=== PATIENT | female | born 1950 | race Caucasian/White ===

== ENCOUNTER → 2017-08-30 07:38 | Outpatient (CLI) | payer MEDICARE, OTHER, SELFPAY ==
--- NOTE | 2017-08-30 07:42 | CT_ITS ---
STUDY: CT ABDOMEN AND PELVIS WITH CONTRAST REASON FOR EXAM: Female, 67 years old. Left-sided abdominal pain with radiation to the left lower extremity. Possible abdominal mass. History of cervical carcinoma and prior hysterectomy. RADIATION DOSAGE (If Supplied By Facility): CTDIvol = ( 14.18 ) mGy, DLP = ( 993.74 ) mGycm TECHNIQUE: Transaxial images were obtained from the dome of the diaphragm to the symphysis pubis with oral contrast. 100 ml of Isovue 300 contrast was administered. Sagittal and coronal images were reconstructed. Individualized dose optimization techniques were used for this CT. COMPARISON: None. FINDINGS: The visualized lung bases are unremarkable. Coronary artery calcification. Normal liver. Normal gallbladder and extrahepatic biliary system. Normal spleen. Normal pancreas. There is a small, circumscribed, smooth, low attenuation left adrenal mass, consistent with an adrenal adenoma. This measures 1 cm. Normal right adrenal gland. There is a 1.7 cm cyst in the anterior aspect of the right kidney. Normal left kidney. There is a small hiatal hernia. Normal small intestine. There are multiple colonic diverticula consistent with diverticulosis. The appendix is visualized and appears normal. There is scattered atherosclerotic calcification of the abdominal aorta, without a demonstrated aneurysm. Normal inferior vena cava. There is borderline retroperitoneal lymphadenopathy with enlarged nodes no greater than 10mm in the short axis diameter. Normal urinary bladder. There is absence of the uterus consistent with a prior hysterectomy. Phleboliths are seen in the pelvis. There is a small umbilical hernia containing fat. Small benign-appearing bilateral inguinal lymph nodes. There are degenerative changes of the visualized lumbar spine. CT/Abdomen/Pelvis WITH Contrast IMPRESSION: 1 cm adenoma in the left adrenal gland. Sigmoid diverticulosis. Electronically Signed: Leo Novoa MD at 10:13 EST Tel [phone], Service support ,
== END ==
PROVIDERS: Family Provider Family Medicine; PCP Family Medicine; Visit Provider Family Medicine
DX: R19.00 Intra-abdominal and pelvic swelling, mass and lump, unspecified site (principal)
CPT/HCPCS: 74177; Q9967

== ENCOUNTER → 2017-09-14 09:04 | Outpatient (CLI) | payer MEDICARE, OTHER, SELFPAY ==
--- NOTE | 2017-09-14 09:05 | HPBI_ITS ---
MAMMOGRAPHY - BILATERAL SCREENING REASON FOR EXAM: Female, 67 years old. Routine annual screening examination. PERTINENT HISTORY: Aunt with breast cancer. TECHNIQUE: Digital bilateral breast dave (3D mammographic acquisition) in the CC and MLO projections. 2-D mediolateral oblique (MLO) and craniocaudad (CC) views of both breasts were obtained. CAD: Full Field Digital Mammography with Computer Added Detection was performed. COMPARISON: Comparison is made with prior outside examination dated May 18, 2016. FINDINGS: Breast Composition: The breasts are almost entirely fatty. There are no dominant masses or suspicious calcifications. Stable bilateral benign appearing axillary lymph nodes. No other significant abnormalities are identified. There has been no significant change since the prior study. HPBI/SCREENING MAMM (CAD), BILAT IMPRESSION: Stable bilateral screening mammogram. Yearly follow-up mammogram recommended. (A) ASSESSMENT CATEGORY: BIRADS Category 2: Benign. A letter regarding these results will be sent to the patient by the facility within 30 days. Approximately 10% of breast cancers are not detected by mammography. A normal mammogram should not delay biopsy of a clinically suspicious abnormality. [id number] Electronically Signed: Leo Novoa MD at 10:52 EST Tel [phone], Service support ,
--- NOTE | 2017-09-14 09:13 | HPBD_ITS ---
STUDY: DUAL ENERGY X-RAY ABSORPTIOMETRY / DXA REASON FOR EXAM: Female, 67 years old. The patient is postmenopausal. Loss of height. TECHNIQUE: Bone Mineral Density (BMD) measurements of lumbar spine and bilateral hips were obtained. COMPARISON: None. FINDINGS: Lumbar Spine (L1-L4): g/cm2 (1.082) / T-score (-1.0) / Z-score (0.6) Findings are suggestive of normal bone density with a low fracture risk. Left Femur Total: g/cm2 (1.012) / T-score (0.0) / Z-score (1.4) Left Femoral Neck: g/cm2 (0.932) / T-score (-0.8) / Z-score (0.8) Right Femur Total: g/cm2 (0.992) / T-score (-0.1) / Z-score (1.2) Right Femoral Neck: g/cm2 (0.889) / T-score (-1.1) / Z-score (0.5) HPBD/Dexa Bone Density Study (HP) IMPRESSION: The patient is considered osteopenic as outlined below according to World Ketan Organization (WHO) criteria with a low fracture risk. Reference Information: The T-score is the number of standard deviations above or below the standard which is normal for young adults at their peak bone mineral density. The World Health Organization (WHO) interprets the T-scores as follows: Above -1 Normal bone density Between -1 and -2.5 Osteopenia Equal to / or below -2.5 Osteoporosis As a practical clinical guideline, osteopenia may be graded as follows: Mild -1 through -1.5 Moderate -1.6 through -2.0 Severe -2.1 through -2.4 The Z-score is the number of standard deviations above or below age-matched controls. A Z-score of less than -1.5 would be considered abnormal. References: 1. NIH Osteoporosis and Related Bone Diseases http://www.osteo.org 2. International Society for Clinical Densitometry http://www.iscd.org 3. National Osteoporosis Foundation http://www.nof.org Electronically Signed: Leo Novoa MD at 9:42 EST Tel [phone], Service support ,
== END ==
PROVIDERS: Family Provider Family Medicine; PCP Family Medicine; Visit Provider Family Medicine
DX: Z12.31 Encounter for screening mammogram for malignant neoplasm of breast (principal); M81.0 Age-related osteoporosis without current pathological fracture
CPT/HCPCS: 77063; 77067; 77080

== ENCOUNTER → 2018-11-01 07:46 | Outpatient (CLI) | payer MEDICARE, OTHER, SELFPAY ==
--- NOTE | 2018-11-01 07:55 | BI_ITS ---
MAMMOGRAPHY - BILATERAL SCREENING REASON FOR EXAM: Female, 68 years old. Routine annual screening examination. PERTINENT HISTORY: Aunt with breast cancer. TECHNIQUE: Digital bilateral breast dave (3D mammographic acquisition) in the CC and MLO projections. 2-D mediolateral oblique (MLO) and craniocaudad (CC) views of both breasts were obtained. CAD: Full Field Digital Mammography with Computer Added Detection was performed. COMPARISON: Comparison is made with prior study dated September 14, 2017. FINDINGS: Breast Composition: The breasts are almost entirely fatty. There are no dominant masses or suspicious calcifications. Stable small benign-appearing bilateral axillary lymph nodes. No other significant abnormalities are identified. There has been no significant change since the prior study. BI/SCREENING MAMM (CAD), BILAT IMPRESSION: Stable bilateral screening mammogram. Yearly follow-up mammogram recommended. (A) ASSESSMENT CATEGORY: BIRADS Category 2: Benign. A letter regarding these results will be sent to the patient by the facility within 30 days. Approximately 10% of breast cancers are not detected by mammography. A normal mammogram should not delay biopsy of a clinically suspicious abnormality. [id number] Electronically Signed: Leo Novoa, at 9:07 EDT , Service support ,
== END ==
PROVIDERS: Family Provider Family Medicine; PCP Family Medicine; Referring Provider Family Medicine; Visit Provider Family Medicine
DX: Z12.31 Encounter for screening mammogram for malignant neoplasm of breast (principal)
CPT/HCPCS: 77063; 77067

== ENCOUNTER → 2019-08-07 15:16 | Outpatient (CLI) | payer MEDICARE, OTHER, SELFPAY ==
--- NOTE | 2019-08-07 15:28 | RAD_ITS ---
STUDY: X-RAY - LUMBAR SPINE REASON FOR EXAM: Female, 69 years old. ACUTE LBP, RIGHT MOSTLY, S/P BENDING FORWARD. PATIENT STATES FELT A POP ABOUT A WEEK AGO AND PAIN SINCE THEN. TECHNIQUE: 5 view(s) of the lumbar spine were obtained including oblique views. COMPARISON: None FINDINGS: Normal lumbar lordosis. There is no substantial scoliosis. There is a normal alignment of the vertebrae. There is endplate spondylosis of the lumbar vertebrae. There is multi-level degenerative disc disease with multi-level disc space narrowing. Facet joint osteoarthritis. There is atherosclerotic calcification of the abdominal aorta without a demonstrated aneurysm. RAD/L/S Spine Min 4 Views IMPRESSION: Degenerative changes of the spine, as detailed above. Electronically Signed: Leo Novoa, at 8:59 EST , Service support ,
== END ==
PROVIDERS: PCP Family Medicine; Referring Provider Family Medicine; Visit Provider Family Medicine
DX: M54.5 Low back pain (principal)
CPT/HCPCS: 72110

== ENCOUNTER → 2019-12-18 07:23 | Outpatient (CLI) | payer MEDICARE, OTHER, SELFPAY ==
--- NOTE | 2019-12-18 07:28 | BI_ITS ---
MAMMOGRAPHY - BILATERAL SCREENING REASON FOR EXAM: Female, 69 years old. Routine annual screening examination. PERTINENT HISTORY: Aunt with breast cancer. TECHNIQUE: Digital bilateral breast cristobal (3D mammographic acquisition) in the CC and MLO projections. 2-D mediolateral oblique (MLO) and craniocaudad (CC) views of both breasts were obtained. CAD: Full Field Digital Mammography with Computer Added Detection was performed. COMPARISON: Comparison is made with prior study dated November 01, 2018 and April 14, 2018. FINDINGS: Breast Composition: The breasts are almost entirely fatty. There are no dominant masses or suspicious calcifications. Stable small benign appearing bilateral axillary lymph nodes. No other significant abnormalities are identified. There has been no significant change since the prior study. BI/SCREEN MAMM (CAD) W/CRISTOBAL BILAT IMPRESSION: Stable bilateral screening mammogram. Yearly follow-up mammogram recommended. (A) ASSESSMENT CATEGORY: BIRADS Category 2: Benign. A letter regarding these results will be sent to the patient by the facility within 30 days. Approximately 10% of breast cancers are not detected by mammography. A normal mammogram should not delay biopsy of a clinically suspicious abnormality. [id number] Electronically Signed: Leo Novoa, at 9:14 EDT , Service support ,
== END ==
PROVIDERS: PCP Family Medicine; Referring Provider Family Medicine; Visit Provider Family Medicine
DX: Z12.31 Encounter for screening mammogram for malignant neoplasm of breast (principal)
CPT/HCPCS: 77063; 77067

== ENCOUNTER → 2020-12-18 15:07 | Outpatient (CLI) | payer MEDICARE, OTHER, SELFPAY ==
--- NOTE | 2020-12-18 15:10 | BI_ITS ---
MAMMOGRAPHY - BILATERAL SCREENING REASON FOR EXAM: Female, 70 years old. Routine annual screening examination. PERTINENT HISTORY: Aunt with breast cancer. TECHNIQUE: Digital bilateral breast cristobal (3D mammographic acquisition) in the CC and MLO projections. 2-D mediolateral oblique (MLO) and craniocaudad (CC) views of both breasts were obtained. CAD: Full Field Digital Mammography with Computer Added Detection was performed. COMPARISON: Comparison is made with prior examination dated 12/18/2019 and 11/01/2018. FINDINGS: Breast Composition: The breasts are almost entirely fatty. There are no dominant masses or suspicious calcifications. Stable benign appearing bilateral axillary lymph nodes. No other significant abnormalities are identified. There has been no significant change since the prior study. BI/SCRN MAMM (CAD)W/CRISTOBAL BILAT IMPRESSION: Stable bilateral screening mammogram. Yearly follow-up mammogram recommended. (A) ASSESSMENT CATEGORY: BIRADS Category 2: Benign. A letter regarding these results will be sent to the patient by the facility within 30 days. Approximately 10% of breast cancers are not detected by mammography. A normal mammogram should not delay biopsy of a clinically suspicious abnormality. [id number]. 7 Electronically Signed: Leo Novoa MD at 15:46 EDT , Service support ,
== END ==
PROVIDERS: PCP Family Medicine; Referring Provider Family Medicine; Visit Provider Family Medicine
DX: Z12.31 Encounter for screening mammogram for malignant neoplasm of breast (principal)
CPT/HCPCS: 77063; 77067

== ENCOUNTER 2021-09-05 10:29 | Outpatient (CLI) | payer MEDICARE, OTHER, SELFPAY ==
--- NOTE | 2021-09-05 10:33 | RAD_ITS ---
STUDY: X-RAY - PELVIS AND LEFT HIP REASON FOR EXAM: Female, 71 years old. Hip pain. TECHNIQUE: 3 views of the pelvis and hip. COMPARISON: None. FINDINGS: There is a non-specific bowel gas pattern. Phleboliths. Osteopenia. Mild arthrosis of both sacroiliac joints. Moderate arthrosis of the symphysis pubis. Mild arthrosis of both hips. RAD/HIP, UNI W/ Pelvis 2-3 Views IMPRESSION: Osteopenia with osteoarthritic changes as described. No acute abnormality, evidence of erosive changes or fusion. Electronically Signed: Rob Zhu MD at 10:55 EST ,
--- NOTE | 2021-09-05 10:33 | RAD_ITS ---
STUDY: X-RAY - LUMBAR SPINE REASON FOR EXAM: Female, 71 years old. Back pain. TECHNIQUE: 5 view(s) of the lumbar spine were obtained. COMPARISON: 08/07/2019. FINDINGS: Stable osteopenia. Normal lumbar lordosis. There is no substantial scoliosis. There is a normal alignment of the vertebrae. Diffuse facet sclerosis. Spina bifida occulta at S1, unchanged. Intervertebral disc space narrowing at T11-T12, T12-L1, L1-L2, L3-L4, L4-L5 and to the greatest degree L5-S1, unchanged from prior study. Phleboliths. RAD/L/S Spine Min 4 Views IMPRESSION: Stable osteopenia with moderate lumbar spondylosis most marked at L5-S1. No acute abnormality, evidence of erosive changes or fusion. Electronically Signed: Rob Zhu MD at 10:57 EST ,
== END 2021-09-05 23:59 | disposition home or self-care (01) ==
LOC: MTRAD 10:30
PROVIDERS: PCP Family Medicine; Referring Provider Family Medicine; Visit Provider Family Medicine
DX: M54.9 Dorsalgia, unspecified (principal); M25.559 Pain in unspecified hip
CPT/HCPCS: 72110; 73502

== ENCOUNTER 2021-09-18 16:38 | Outpatient (CLI) | payer MEDICARE, OTHER, SELFPAY ==
--- NOTE | 2021-09-18 16:47 | MRI_ITS ---
STUDY: MR Spine Lumbar W/O Contrast 09/18/2021 9:47 PM REASON FOR EXAM: Female, 71 years old. Back pain LOW BACK PAIN AND POSTERIOR PELVIC PAIN; HX OF NEOPLASM OF CERVIX- 40 yrs ago TECHNIQUE: MR Spine Lumbar W/O Contrast Standardized fat and water weighted pulse sequences were obtained. COMPARISON: None FINDINGS: T12-L1: Normal endplates. Normal disc height, hydration and morphology. Normal bilateral facet joints. Normal central canal and bilateral lateral recesses. Normal bilateral intervertebral neural foramina. Normal lumbar lordosis. There is no substantial scoliosis. Normal conus medullaris that terminates at the L1. L1-2: Loss of intervertebral disc height. There is endplate spondylosis of the vertebral body. Narrowing of the right intervertebral neuroforamina. There is bilateral facet arthropathy. Left paracentral disc extrusion. This is causing severe left neural foraminal stenosis. Compression of exiting left L1 nerve root. No significant spinal stenosis. Discogenic endplate changes. L2-3: Loss of intervertebral disc height. There is endplate spondylosis of the vertebral body. Normal central canal and intervertebral neuroforamina. There is bilateral facet arthropathy. Right paracentral disc herniation. No spinal stenosis. L3-4: Loss of intervertebral disc height. There is endplate spondylosis of the vertebral body. Normal central canal and intervertebral neuroforamina. There is bilateral facet arthropathy. Posterior disc bulge. L4-5: Loss of intervertebral disc height. There is endplate spondylosis of the vertebral body. Narrowing of the right intervertebral neuroforamina. There is bilateral facet arthropathy. Right paracentral disc herniation. No spinal stenosis. L5-S1: Loss of intervertebral disc height. There is endplate spondylosis of the vertebral body. There is bilateral facet arthropathy. There is bilateral ligamentum flavum thickening. Bilateral neural foraminal stenosis. Compression of exiting nerve roots. Central disc herniation. No spinal stenosis. Normal visualized sacral ala. Normal visualized paraspinous soft tissue structures. MRI/Spine Lumbar (Routine) IMPRESSION: Multilevel degenerative changes, as described above. L5-S1 paracentral disc herniation. L4-5 and L2-3.Right paracentral disc herniation. No spinal stenosis. L1-2. Left paracentral disc extrusion. This is causing severe left neural foraminal stenosis. Compression of exiting left L1 nerve root. No significant spinal stenosis. Electronically Signed: Arnaldo Jain MD at 21:53 EST ,
== END 2021-09-18 23:59 | disposition home or self-care (01) ==
LOC: MRI 16:39
PROVIDERS: PCP Family Medicine; Visit Provider Family Medicine
DX: M54.50 Low back pain, unspecified (principal); Z85.41 Personal history of malignant neoplasm of cervix uteri
CPT/HCPCS: 72148

== ENCOUNTER 2021-11-18 09:31 | Outpatient (RCR) | payer MEDICARE, SELFPAY ==
--- NOTE | 2021-11-19 08:48 | HP.PTEVAL ---
Patient's Visit Information KE GTZ is a 71 year old F referred to Physical Therapy by Dr. Bruna Mcgee MD with a diagnosis of low back and bilateral leg pain. Date of Evaluation: 11/18/21 Physical Therapist: Fadi Spicer DPT - Visit Plan Frequency: 1-2x /Week Duration: 4 Weeks Plan: Start with extension progression, but slowly. She had a marked reduction in symptoms with light extension today. I want her to slowly progress with this. Add in standing extension while at work to increase tolerance to work activities. Once symptoms have reduce add in neutral spine core stability, none painful movements. - Subjective Pt. is today for her initial evaluation with diagnosis of low back and bilateral leg pain. She reports increased pain in B feet with standing for long periods of time. It feel like I am standing on marbles. Pt. reports having this pain has been going on for about 6-8 months. She did have injections that improved her symptoms. Allowing her to tolerate much more daily activities. Pt. denies N/T. Pt denies pain radiating down her legs. She denies that her leg give out on her. No issues with sleeping. No problem staying asleep. She is most concerned about her legs and the marble feeling in her feet. Pt. works a few days where she is on her feet for 5-6 hours a day. Resulting in her B foot pain. She does have some soreness at the L side of her lumbar spine. She is hopeful to reduce symptoms in order to complete all work and recreational activities without limitations. - Pain B feet Pain Intensity (Out of 10): 0 Pain Intensity Range: 0, 6 Low back Pain Intensity (Out of 10): 2 Pain Intensity Range: 0, 6 Comment: soft, annoyance, L side - Objective POSTURE: Pt. has decent posture in stance. Normal iliac crest heights. PALPATION: Pt. has some slight tenderness at L side SI joint and into iliac crest. NEURO: Pt. has normal DTR and normal sensation to light and sharp touch. Pt. is able to rise on heels and toes without issues, did use wall for balance. ROM: Pt. has normal LE ROM bilaterally. Pt. has slight tightness in B hip ER and HS. LUMBAR SPINE: flexion nil loss NE, ext mod loss decrease better, SB min loss NE bilat, rotation min/nil loss bilat NE. MMT: Pt. has 4+/5 strength in BLEs, except hip abd 4/5, flexion 4/5, ext 4/5. No myotomal weakness noted. Core strength- poor+. GAIT: pt. has normal gait pattern with AD. Minimal lateral hip sway. No Trendelenburg noted. Normal posture, normal step length noted. STAIRS: reciprocal with out use of HR, good pattern noted. - Special Tests L/S Slump test left side: Positive L/S Slump test right side: Negative L/S Left Straight Leg Raise: Negative L/S Right Straight Leg Raise: Positive L/S Left Femoral Nerve Tension: Negative L/S Right Femoral Nerve Tension: Negative L/S Instability PA Test: Negative L/S Prone Instability Test: Negative Passive L/S Extension Test: Negative - Balance/Special Test Scores Oswestry Low Back Score: 7 - Goals Goal 1:: LTG: Pt. to be I with HEP for lumbar ROM and stability exercises. Goal Time Frame: 4-6 Weeks Goal 2:: STG: pt. to have increased lumbar extension to min/nil loss without increase in symptoms. Goal Time Frame: 2 Weeks Goal 3:: LTG: Pt. to be able to complete all daily work activities without increase in BLE symptoms. Goal Time Frame: 4-6 Weeks Goal 4:: LTG: Pt. to have increased B hip strength and core strength 1/2 grade in order to reduce stress to hip lumbar spine with all functional mobility. Goal Time Frame: 4-6 Weeks - Rehabilitation Potential Physical Therapy Diagnosis: Pt. has signs and symptoms consistent with low back and bilateral leg pain. Pt. has no radicular symptoms into LE, but has some pain into L side of her SI joint and into gluteal region. She has had significant reduction in symptoms with her previous SI injections. She had marked relief with extension this visit. She would benefit from PT to work on lumbar extension and neutral spine core stability in order to reduce stress applied to lumbar spine with all functional and recreational activities. Rehabilitation Potential: Excellent - Anticipated Interventions Patient/Client Instruction: Educate patient on: Condition, Plan of Care, Risk Factors, Benefits of Fitness Program For the Purpose of:: To improve decision making, To facilitate caregiver knowledge, To improve self management, To prevent re-injury, To improve ability to perform tasks related to life management Therapeutic Exercise to Include: Strength training, Body mechanics, Postural training, Flexibilty training, Dynamic Lumbar Stabilization, Serge Exercises For the Purpose of:: To decrease pain, To increase ROM, To improve nutrient delivery to tissue, To increase oxygenation perfusion, To improve muscle performance and motor function, To improve ability to perform ADL's, To decrease level of supervision to perform tasks, To improve ability of physical actions for home/community/work/leisure, To improve gait and locomotor functions, To improve health of tissue, To decrease soft tissue restriction Thank you for the opportunity to evaluate your patient. For Medicare and Medicare HMO plans, please review the plan of care and approve it. It will need to be FAXED BACK to us at [phone] for Medicare purposes. For Medicare only, by signing this I certify the plan of care. Please let me know if there are questions or concerns regarding this plan of care. Physician Signature: Date:
== END 2021-11-18 19:00 | disposition home or self-care (01) ==
LOC: PT 09:31
PROVIDERS: PCP Family Medicine; Referring Provider Anesthesiology Pain Medicine; Visit Provider Anesthesiology Pain Medicine
DX: M54.9 Dorsalgia, unspecified (principal); M79.606 Pain in leg, unspecified
CPT/HCPCS: 97161

== ENCOUNTER → 2021-12-24 | Outpatient (CLI) | payer MEDICARE, SELFPAY ==
--- NOTE | 2021-12-24 07:05 | BI_ITS ---
MAMMOGRAPHY - BILATERAL SCREENING REASON FOR EXAM: Female, 71 years old. Routine annual screening examination. PERTINENT HISTORY: Non-contributory. TECHNIQUE: Digital bilateral breast cristobal (3D mammographic acquisition) in the CC and MLO projections. 2-D mediolateral oblique (MLO) and craniocaudad (CC) views of both breasts were obtained. CAD: Full Field Digital Mammography with Computer Added Detection was performed. COMPARISON: Comparison is made with prior study dated 12/18/2020 and 12/18/2019. FINDINGS: Breast Composition: The breasts are almost entirely fatty. There are no dominant masses or suspicious calcifications. Stable small benign-appearing bilateral axillary lymph nodes. No other significant abnormalities are identified. There has been no significant change since the prior study. BI/SCRN MAMM (CAD)W/CRISTOBAL BILAT IMPRESSION: Stable bilateral screening mammogram. Yearly follow-up mammogram recommended. (A) ASSESSMENT CATEGORY: BIRADS Category 2: Benign. A letter regarding these results will be sent to the patient by the facility within 30 days. Approximately 10% of breast cancers are not detected by mammography. A normal mammogram should not delay biopsy of a clinically suspicious abnormality. [id number] Electronically Signed: Leo Novoa MD at 8:43 EDT ,
== END | disposition home or self-care (01) ==
LOC: OPBI 07:03
PROVIDERS: PCP Family Medicine; Visit Provider Family Medicine
DX: Z12.31 Encounter for screening mammogram for malignant neoplasm of breast (principal)
CPT/HCPCS: 77063; 77067

== ENCOUNTER → 2022-10-08 | Outpatient (CLI) | payer MEDICARE, OTHER, SELFPAY ==
[2022-10-08 18:24] LABS: Absolute Lymphocyte Count 2.75 X10^3/uL (0.83-4.51); Basophil# 0.06 X10^3/uL; Basophil% 0.8 % (0-1); Eosinophil# 0.28 X10^3/uL; Eosinophils% 3.6 % (0-5); Hematocrit 45.4 % (37-47); Hemoglobin 14.7 g/dL (12.0-15.0); Lymphocyte # 2.75 X10^3/ul (0.83-4.51); Lymphocyte % 35.2 % (19-41); Mean Corp Hgb Conc 32.4 g/dL (32-36); Mean Corpuscular Hgb 30.1 pg (27.0-32.0); Mean Platelet Vol. 9.8 fl (6.2-12.0); Monocyte# 0.69 X10^3/uL; Monocyte% 8.8 % (0-10); NRBC Flagged by Analyzer 0 % (0-5); Neutrophil # 4.01 X10^3/uL (2.7-7.7); Neutrophil % 51.2 % (47-70); Platelet Count 265 K/mm3 (150-450); RBC Distribution Width CV 13.2 % (11.6-14.6); RBC Distribution Width SD 44.8 fl (35.1-43.9); Red Blood Count 4.88 M/mm3 (4.2-5.4); White Blood Count 7.8 K/mm3 (4.4-11.0)
[2022-10-08 18:37] LABS: Color, Urine Yellow (Yellow); Glucose, Dipstick Normal (Normal); Ketone-Dipstick Negative (Negative); Leukocyte Esterase-Dipstick Negative /ul (Negative); Nitrite-Dipstick Negative (Negative); Occult Blood-Urine Negative /ul (Negative); Protein-Dipstick Negative (Negative); Urine Bilirubin Dipstick Negative (Negative); Urine Clarity Clear (Clear); Urine Urobilinogen Normal (Normal)
[2022-10-08 18:53] LABS: ALB/GLOB Ratio 1.2 RATIO (0.9-2.4); AST(SGOT) 25 U/L (15-37); Alanine Aminotransfer ALT/SGPT 35 U/L (13-56); Alkaline Phosphatase 60 U/L (45-117); Anion Gap 8 (5-15); BUN 14 mg/dL (7-18); BUN/Creat Ratio 17.5 RATIO (10-20); Calcium,Total 9.1 mg/dL (8.5-10.1); Chloride 108 mmol/L (98-107); Cholesterol 232 mg/dL (200); EST Glomerular Filtration Rate 75 mL/min (>60); Est Glom Filt Rate - Afr Amer 90 mL/min (>60); Globulin 3.3 g/dL (2.2-4.2); Glucose 97 mg/dL (74-106); High Density Lipoprotein 50 mg/dL; Protein, Total 7.3 g/dL (6.4-8.2); Sodium Level 141 mmol/L (136-145); Triglycerides 239 mg/dL; Very Low Density Lipoprotein 48 mg/dL (5-40)
== END | disposition home or self-care (01) ==
PROVIDERS: PCP Family Medicine; Referring Provider Family Medicine; Visit Provider Family Medicine
DX: Z00.00 Encounter for general adult medical examination without abnormal findings (principal); R10.32 Left lower quadrant pain; E55.9 Vitamin D deficiency, unspecified; E78.5 Hyperlipidemia, unspecified
CPT/HCPCS: 36415; 80053; 80061; 81002; 82306; 85025

== ENCOUNTER → 2022-11-12 | Outpatient (CLI) | payer MEDICARE, OTHER, SELFPAY ==
--- NOTE | 2022-11-12 14:29 | CT_ITS ---
STUDY: CT ABDOMEN AND PELVIS WITH CONTRAST REASON FOR EXAM: Female, 72 years old. LLQ PAIN. Prior hysterectomy due to cervical carcinoma. RADIATION DOSAGE (If Supplied By Facility): CTDIvol = ( 16.27 ) mGy, DLP = ( 985.32 ) mGycm TECHNIQUE: Transaxial images were obtained from the dome of the diaphragm to the symphysis pubis with oral contrast. Oral and amp; IV Readi-CAT and amp; 100mL Isovue-300 was administered. Sagittal and coronal images were reconstructed. Individualized dose optimization techniques were used for this CT. COMPARISON: Comparison is made with prior study of August 30, 2017. FINDINGS: Minimal increased linear markings in the anterior aspect of the left lower lobe is suggestive of atelectasis and/or scarring. The visualized portions of the heart are within normal limits. There is decreased attenuation of the liver consistent with steatosis. Normal gallbladder and extrahepatic biliary system. Normal spleen. Normal pancreas. There is a small, circumscribed, smooth, low attenuation left adrenal mass, consistent with an adrenal adenoma. This is unchanged. Normal right adrenal gland. There is a 2.8 cm x 2.3 cm cyst in the anterior aspect of the right kidney superiorly. Normal left kidney. There is a small hiatal hernia. Normal small intestine. There are multiple colonic diverticula consistent with diverticulosis. The appendix is visualized and appears normal. There is scattered atherosclerotic calcification of the abdominal aorta, without a demonstrated aneurysm. Normal inferior vena cava. Normal retroperitoneum. Normal urinary bladder. There is absence of the uterus consistent with a prior hysterectomy. There is a small umbilical hernia containing fat. There are diffuse degenerative changes of the visualized lumbar spine. CT/Abdomen/Pelvis WITH Contrast IMPRESSION: Fatty infiltration of the liver. Small right renal cyst. Electronically Signed: Leo Novoa MD at 12:02 EDT ,
[2022-11-12 15:26] LABS: CREATININE FINGERSTICK < 0.9 mg/dL (0.55-1.02); EGFR FINGERSTICK > 60.0000 mL/min (>60)
== END | disposition home or self-care (01) ==
PROVIDERS: PCP Family Medicine; Referring Provider Family Medicine; Visit Provider Family Medicine
DX: R10.32 Left lower quadrant pain (principal); M81.0 Age-related osteoporosis without current pathological fracture
CPT/HCPCS: 74177; Q9967

== ENCOUNTER → 2022-11-26 | Outpatient (CLI) | payer MEDICARE, OTHER, SELFPAY ==
--- NOTE | 2022-11-26 08:50 | BD_ITS ---
STUDY: DUAL ENERGY X-RAY ABSORPTIOMETRY / DXA REASON FOR EXAM: Female, 72 years old. M810 TECHNIQUE: Bone Mineral Density (BMD) measurements of lumbar spine and bilateral hips were obtained. COMPARISON: Comparison is made with prior study of September 14, 2017. FINDINGS: Lumbar Spine (L1-L4): g/cm2 (1.077) / T-score (0.3) / Z-score (2.5) Findings are suggestive of normal bone density with a low fracture risk. Left Femur Total: g/cm2 (0.866) / T-score (-0.6) / Z-score (1.0) Left Femoral Neck: g/cm2 (0.719) / T-score (-1.2) / Z-score (0.8) Right Femur Total: g/cm2 (0.874) / T-score (-0.6) / Z-score (1.1) Right Femoral Neck: g/cm2 (0.681) / T-score (-1.5) / Z-score (0.4) The T-Scores on the most recent prior examination were: Lumbar Spine (L1-L4): There has been worsening of bone density since the previous examination. Left Femur Total: which represents a worsening of 8.5%. Right Femur Total: which represents a worsening of 5.7%. BD/Dexa Bone Density Study IMPRESSION: The patient is considered osteopenic as outlined below according to World Ketan Organization (WHO) criteria with a low fracture risk. There has been worsening of bone density since the previous examination. Reference Information: The T-score is the number of standard deviations above or below the standard which is normal for young adults at their peak bone mineral density. The World Health Organization (WHO) interprets the T-scores as follows: Above -1 Normal bone density Between -1 and -2.5 Osteopenia Equal to / or below -2.5 Osteoporosis As a practical clinical guideline, osteopenia may be graded as follows: Mild -1 through -1.5 Moderate -1.6 through -2.0 Severe -2.1 through -2.4 The Z-score is the number of standard deviations above or below age-matched controls. A Z-score of less than -1.5 would be considered abnormal. References: 1. NIH Osteoporosis and Related Bone Diseases www osteo.org 2. International Society for Clinical Densitometry www iscd.org 3. National Osteoporosis Foundation www nof.org Electronically Signed: Leo Novoa MD at 10:39 EDT ,
== END | disposition home or self-care (01) ==
LOC: OPBD 08:46
PROVIDERS: PCP Family Medicine; Referring Provider Family Medicine; Visit Provider Family Medicine
DX: M81.0 Age-related osteoporosis without current pathological fracture (principal)
CPT/HCPCS: 77080

== ENCOUNTER → 2023-01-04 | Outpatient (CLI) | payer MEDICARE, OTHER, SELFPAY ==
--- NOTE | 2023-01-04 07:03 | BI_ITS ---
MAMMOGRAPHY - BILATERAL SCREENING REASON FOR EXAM: Female, 72 years old. Routine annual screening examination. PERTINENT HISTORY: Aunt with breast cancer. TECHNIQUE: Digital bilateral breast cristobal (3D mammographic acquisition) in the CC and MLO projections. 2-D mediolateral oblique (MLO) and craniocaudad (CC) views of both breasts were obtained. CAD: Full Field Digital Mammography with Computer Added Detection was performed. COMPARISON: Mammogram from 12/24/2021, 12/18/2020. FINDINGS: Breast Composition: There are scattered areas of fibroglandular density. There are no dominant masses or suspicious calcifications. Stable small benign-appearing bilateral axillary lymph nodes. No other significant abnormalities are identified. There has been no significant change since the prior study. BI/SCRN MAMM (CAD)W/CRISTOBAL BILAT IMPRESSION: Stable bilateral screening mammogram. Yearly follow-up mammogram recommended. (A) ASSESSMENT CATEGORY: BIRADS Category 2: Benign. A letter regarding these results will be sent to the patient by the facility within 30 days. Approximately 10% of breast cancers are not detected by mammography. A normal mammogram should not delay biopsy of a clinically suspicious abnormality. Electronically Signed: Anthony Newman DO at 11:57 EDT ,
== END | disposition home or self-care (01) ==
LOC: OPBI 07:01
PROVIDERS: PCP Family Medicine; Referring Provider Family Medicine; Visit Provider Family Medicine
DX: Z12.31 Encounter for screening mammogram for malignant neoplasm of breast (principal); Z80.3 Family history of malignant neoplasm of breast
CPT/HCPCS: 77063; 77067

== ENCOUNTER 2023-01-05 07:00 | Outpatient (RCR) | payer MEDICARE, OTHER, SELFPAY ==
--- NOTE | 2022-12-01 10:48 | HP.PTEVAL ---
Patient's Visit Information KE GTZ is a 72 year old F referred to Physical Therapy by Dr. Bruna Mcgee MD with a diagnosis of Back and Leg pain. Date of Evaluation: 12/01/22 Physical Therapist: BELA Ricks - Visit Plan Frequency: 2x /Week Duration: 6 Weeks Plan: 2X/ week for 6 weeks for foam rolling and stretching of B Piriformis, Hamstring, gastroc, Quad, then progress to strength of neutral spine core stability, hip strength for Si with HEP - Subjective Pt has been told by Dr Mcgee that she has some degeneration behind the pelvis. She has balance issues and at times she feels like both feet feel tight. Her massage therapist helps a lot. She has pain if goes down on her knees to garden or of she flexes over she has increase pain. Her back pain was so bad that she had to take a few pain shots. She had to stand up and decide how she was going to walk. She did gardening the last few days and she had to take Alieve to relieve the pain. Currently she has back pain and points to her saccrum area. She feels like her legs are weak and hard to get up from the floor or from gardening. No pain with walking and sitting is not a problem. steps are a little bit of an issue but is getting better and not holding onto the railing as much now. - Pain back pain Pain Intensity (Out of 10): 1 leg pain Pain Intensity (Out of 10): 0 - Objective Gait: walks fast with longer stride and quick feet (some increase in pain with walking in her back). Trunk AROM: flex 80, Ext 75, Rot B 50% and SB B 75%. LE MMT: R hip flex 13.3 and L 10.4. R knee ext 19.8 and L 15.5. R knee flex 10 and L 10.1. R hip abd in s/L 13.3 and L 9,9. Walk on heels and toes: Pt is able to walk on heel and toes with no issue other than some back pain walking on her heels. SLUMP test: negative B. SLR: negative B. Tight B PIRIFORMIS B, Hamstring, gastroc and Quad. Palpation: tender along the muscle belly of B piriformis muscles. Pt could tell we were in the right spot after piriformis stretches. - Balance/Special Test Scores Oswestry Low Back Score: 6 - Goals Goal 1:: I HEP Goal Time Frame: 4-6 Weeks Goal 2:: Decrease back and leg pain by 50% while doing ADL's Goal Time Frame: 4-6 Weeks Goal 3:: Increase LE strength (at time of the eval: LE MMT: R hip flex 13.3 and L 10.4. R knee ext 19.8 and L 15.5. R knee flex 10 and L 10.1. R hip abd in s/L 13.3 and L 9,9) Goal Time Frame: 4-6 Weeks Goal 4:: Increase Piriformis, hamstring, Quad, and gastroc muscle length Goal Time Frame: 4-6 Weeks - Rehabilitation Potential Rehabilitation Potential: Good - Anticipated Interventions Patient/Client Instruction: Educate patient on: Condition, Plan of Care For the Purpose of:: To decrease pain, To increase ROM, To improve nutrient delivery to tissue, To improve muscle performance and motor function, To improve ability to perform ADL's, To increase tolerance to activity/condition/position, To improve performance and independence with ADL's, To decrease level of supervision to perform tasks, To improve ability of physical actions for home/community/work/leisure, To improve gait and locomotor functions, To improve health of tissue, To decrease soft tissue restriction, To increase flexibility/ROM Therapeutic Exercise to Include: Strength training, Body mechanics, Postural training, Flexibilty training, Gait and locomotor training, Neuromotor development, Passive ROM, Active ROM, Dynamic Lumbar Stabilization For the Purpose of:: To decrease pain, To decrease swelling/inflammation, To increase ROM, To improve nutrient delivery to tissue, To increase oxygenation perfusion, To improve muscle performance and motor function, To improve ability to perform ADL's, To increase tolerance to activity/condition/position, To improve performance and independence with ADL's, To decrease level of supervision to perform tasks, To improve ability of physical actions for home/community/work/leisure, To improve gait and locomotor functions, To improve health of tissue, To decrease soft tissue restriction, To increase flexibility/ROM Manual Therapy Techniques to Include: Mobilization, Passive ROM For the Purpose of:: To decrease pain, To increase ROM, To improve nutrient delivery to tissue, To improve muscle performance and motor function, To improve ability to perform ADL's, To increase tolerance to activity/condition/position Thank you for the opportunity to evaluate your patient. For Medicare and Medicare HMO plans, please review the plan of care and approve it. It will need to be FAXED BACK to us at [phone] for Medicare purposes. For Medicare only, by signing this I certify the plan of care. Please let me know if there are questions or concerns regarding this plan of care. Physician Signature: Date:
--- NOTE | 2023-01-05 07:33 | HP.PTDCSUM ---
It has been my pleasure to treat KE GTZ referred by Dr. Bruna Mcgee MD, with the diagnosis of Back and Leg pain for a total of 10 visit(s). Discharge Date: 01/05/23 Please see the following information for a summary of their discharge status. Subjective: Pt really feels that PT has helped. She really likes strengthening and will look into Silver Sneakers back pain Pain Intensity (Out of 10): 1 leg pain Pain Intensity (Out of 10): 0 % Improvement: 100 Objective/Function: LE MMT: R hip flex 13.7 and L 12.5. R knee ext 19.8 and L 19.2. R knee flex 11.8 and L 10.5. R hip abd in s/L 17.5 and L 16.2 Goal 1:: I HEP Goal Progress: Goal Met Goal 2:: Decrease back and leg pain by 50% while doing ADL's Goal Progress: Goal Met Goal 3:: Increase LE strength (at time of the eval: LE MMT: R hip flex 13.3 and L 10.4. R knee ext 19.8 and L 15.5. R knee flex 10 and L 10.1. R hip abd in s/L 13.3 and L 9,9) Goal Progress: Goal Met Goal 4:: Increase Piriformis, hamstring, Quad, and gastroc muscle length Goal Progress: Goal Met Plan: DC PT to I HEP Discharge Comments: DC PT to HEP and possible Silver Sneakers If there are questions or concerns regarding this patient's physical therapy, please feel free to call me at [phone]. Thank you for the referral of this patient. Sincerely, Sena Perdue, MPT Balance/Gait/Functional tests - Balance/Special Test Scores Oswestry Low Back Score: 0
== END 2023-01-05 19:00 | disposition home or self-care (01) ==
LOC: PT 07:00
PROVIDERS: PCP Family Medicine; Referring Provider Anesthesiology Pain Medicine; Visit Provider Anesthesiology Pain Medicine
DX: M54.9 Dorsalgia, unspecified (principal); M79.606 Pain in leg, unspecified
CPT/HCPCS: 97110; 97161; 97530

== ENCOUNTER 2023-05-12 13:51 | Inpatient (IN) | payer MEDICARE, OTHER, SELFPAY ==
[2023-05-12] VITALS (13 sets, daily range): BP systolic 138–174; BP diastolic 71–97; PULSE 61–701; RESP 12–19; TEMP 36.2–36.7; O2SAT 94–100; BMI 33.8; BMI 34.2; BMI 33.2
--- NOTE | 2023-05-12 13:57 | CT_ITS ---
STUDY: CT HEAD STROKE PROTOCOL W/O CONTRAST INJECTION REASON FOR EXAM: Female, 73 years old. Neuro deficit, acute, stroke suspected RADIATION DOSAGE (If Supplied By Facility): CTDIvol = ( 47.06 ) mGy, DLP = ( 890.33 ) mGycm TECHNIQUE: Transaxial CT imaging of the brain was performed without administration of intravenous contrast material. Individualized dose optimization techniques were used for this CT. COMPARISON: No relevant priors. FINDINGS: Normal soft tissue structures. Normal calvarium. There is mild cerebral atrophy with widening of the extra-axial spaces and ventricular dilatation. Normal white matter tracts of the cerebral hemispheres. Focal area of decreased attenuation is seen in the insular cortex of the left temporal lobe suggestive of a ischemic insult at that site. Normal brainstem. Normal cerebellum. There is no intracranial hemorrhage. There are no findings of an acute ischemic infarction. Normal visualized paranasal sinuses. ASPECT score: 9 CT/STROKE Brain/Head without Cont IMPRESSION: Findings suggestive of the focal ischemic insult in the insular cortex of the left temporal lobe. N.B. : The above Results were Read Back by Leo Novoa MD to Dr Brijesh DO, and understanding confirmed on 05/12/2023 14:10:14 (ET). Electronically Signed: Leo Novoa MD at 14:11 EDT ,
--- NOTE | 2023-05-12 13:58 | ED.VIS.STROK ---
HPI History of Present Illness Chief Complaint: Stroke Alert Informant: patient, family and friend Onset/Context/Timing Onset: Today Context: Sudden Onset Timing: Continuous Worsened by: Nothing Relieved by: Nothing Narrative Narrative: Patient presents with stroke alert that was noticed today. Family states that she was supposed to pick them up and take them to lunch. Family became concerned when she did not show up. Family went to her house and noted that she was still in her nightgown. Patient is not sure of the day or time. Family states the patient was known to be normal last evening around 9 PM. Family states the patient did send a text at 11 AM today which sounded normal but when they got to her house she was still in her nightgown which is abnormal for her. PFSH PFS Medical History Cervical cancer Home Medications NK 10/01/21 [History Last Taken Unknown] Allergy/AdvReac Type Severity Reaction Status Date / Time cortisone Allergy swelling Verified 10/29/21 14:11 Family History Mother Cancer Father Heart disease Surgical History History of hysterectomy Social History Smoking Status: Never smoker ROS ROS ED Constitutional Constitutional ED: Denies chills or fever(s) Eyes Eyes: Denies blurry vision or change in vision ENT ENT ED: Denies rhinorrhea or sore throat Cardiovascular Cardiovascular: Denies chest pain or palpitations Respiratory/Chest Respiratory/Chest: Denies cough or dyspnea Gastrointestinal Gastrointestinal: Denies nausea or vomiting Genitourinary Genitourinary ED: Denies dysuria or hematuria Musculoskeletal Musculoskeletal: Denies back pain or neck pain Integumentary Denies abscess or rash Neurologic Neurologic: Denies headache(s) or weakness Allergic/Immunologic Allergic/Immunologic ED: Denies mouth swelling or urticaria EXAM Physical Exam Const Vital Signs: 05/12/23 13:52 05/12/23 13:57 05/12/23 14:07 Temperature 97.8 F Temperature Source Temporal Pulse Rate 98 83 Respiratory Rate 16 18 Blood Pressure 162/97 H 138/85 H Blood Pressure Mean 118 102 Pulse Ox 100 94 Oxygen Delivery Method Room Air Room Air Room Air 05/12/23 14:17 05/12/23 14:30 05/12/23 15:00 Temperature Temperature Source Pulse Rate 78 74 71 Respiratory Rate 12 14 18 Blood Pressure 139/71 H 149/84 H 155/82 H Blood Pressure Mean 93 105 106 Pulse Ox 94 95 94 Oxygen Delivery Method Room Air Room Air Room Air Positive well nourished and well developed General Appearance ED: well developed and NAD HEENT Reports moist mucous membranes Neck supple and no JVD Resp normal respiratory effort and clear to auscultation bilaterally Cardio Rate: regular rate Rhythm: regular rhythm GI soft to palpation, non-tender and non-distended Neuro CN's II-XII intact bilaterally and no sensory deficits noted Jane Coma Scale: document GCS findings Spontaneous Obeys Commands Confused 14 Sensorium / Orientation: alert, oriented to person, oriented to place and confused Speech: speech normal Motor Exam: strength 5/5 throughout NIHSS NIHSS Initial: 1a Level of Consciousness: 0 1b LOC Questions (Score 2 if aphasic/stupor): 1 1c LOC Commands (Only score 1st attempt): 0 2 Best Gaze (If aphasic, use reflexive mvmts.): 0 4 Facial Palsy: 0 5 Motor Arm Right (UN = amputation/fusion): 0 5 Motor Arm Left: 0 6 Motor Leg Right: 0 6 Motor Leg Left: 0 8 Sensory (Aphasia/stupor=0 or 1, coma=2): 0 9 Best Language: 0 10 Dysarthria (mute, coma=2, intubated=UN): 0 11 Extinction and Inattention (only scored if +): 0 Total Score: 1 MDM MDM MDM Narrative Medical decision making narrative: Stroke alert was called. Patient was evaluated in triage initially. Differential diagnosis includes stroke, encephalopathy, intracranial bleeding, electrolyte abnormality, and infection. CT scan of the brain will be obtained to assess for stroke. CTA of the head and neck will be obtained to assess for large vessel occlusion. Chest x-ray will be obtained to assess for pneumonia and pneumothorax. EKG will be obtained to assess for cardiac dysrhythmia and cardiac ischemia. CBC will be obtained to assess for leukocytosis and anemia. Basic metabolic profile will be obtained to assess for electrolyte abnormality and renal function. High-sensitivity troponin will be obtained to assess for cardiac ischemia. PT with INR and PTT will be obtained to assess for coagulopathy. History & Record Review Discussion w/independent historian: Patient and Family Lab Data Attestation: I reviewed the patient's lab results. Lab results narrative: CBC was reviewed and was within normal limits. Basic metabolic profile was reviewed and was essentially within normal limits. PT was INR and PTT were reviewed and were within normal limits. High-sensitivity troponin was reviewed and was normal at 8. Labs: Laboratory Results - last 24 hr 05/12/23 13:54 WBC 8.9 RBC 4.84 Hgb 14.6 Hct 44.6 MCV 92.1 MCH 30.2 MCHC 32.7 RDW Std Deviation 42.9 RDW Coeff of Kimberly 12.7 Plt Count 245 MPV 9.2 Immature Gran % (Auto) 0.200 Neut % (Auto) 56.4 Lymph % (Auto) 31.9 [place] % (Auto) 7.9 Eos % (Auto) 2.8 Baso % (Auto) 0.8 Absolute Neuts (auto) 5.0 Absolute Lymphs (auto) 2.84 Nucleated RBC % 0 PT 13.0 INR 1.0 APTT 26.8 Sodium 140 Potassium 3.8 Chloride 110 H Carbon Dioxide 25.0 Anion Gap 5 BUN 12 Creatinine 0.74 Estim Creat Clear Calc 37.81 Est GFR (MDRD) Af Amer 99 Est GFR (MDRD) Non-Af 82 BUN/Creatinine Ratio 16.2 Glucose 106 Calcium 9.0 Troponin I High Sens 8 Radiography Chest X-Ray - ED: 1 View, Read by ED Physician, Read by Radiologist and No Acute Disease Diagnostic Testing: Clinical Impression(s) from Imaging Studies Brain CT 05/12/23 13:57 IMPRESSION: Findings suggestive of the focal ischemic insult in the insular cortex of the left temporal lobe. N.B. : The above Results were Read Back by Leo Novoa MD to Dr Brijesh DO, and understanding confirmed on 05/12/2023 14:10:14 (ET). Electronically Signed: Leo Novoa MD at 14:11 EDT , ADDENDUM: 05/12/23 1418 IMPRESSION: Findings suggestive of the focal ischemic insult in the insular cortex of the left temporal lobe. N.B. : The above Results were Read Back by Leo Novoa MD to Dr Brijesh DO, and understanding confirmed on 05/12/2023 14:10:14 (ET). Electronically Signed: Leo Novoa MD at 14:11 EDT , Head/Neck CTA 05/12/23 14:00 IMPRESSION: Normal CTA Head and neck with contrast. N.B. : The above Results were Read Back by Leo Novoa MD to Dr Brijesh DO, and understanding confirmed on 05/12/2023 14:24:35 (ET). Electronically Signed: Leo Novoa MD at 14:25 EDT , ADDENDUM: 05/12/23 1432 IMPRESSION: Normal CTA Head and neck with contrast. N.B. : The above Results were Read Back by Leo Novoa MD to Dr Brijesh DO, and understanding confirmed on 05/12/2023 14:24:35 (ET). Electronically Signed: Leo Novoa MD at 14:25 EDT , Chest X-Ray 05/12/23 14:30 IMPRESSION: No acute abnormality is seen. Electronically Signed: Leo Novoa MD at 14:45 EDT , Portable 1 view chest x-ray was obtained. On my independent interpretation, lung durán are clear. There is normal cardiac silhouette. Bony thorax is normal. There is no acute process noted. Radiologist also interpreted the x-ray and agrees. CT scan of the brain was obtained. There is a lacunar infarct in the insular cortex. There is no acute bleeding noted. This was interpreted by the radiologist and was also independently negative by myself. CTA of the head and neck was obtained. There is no large vessel occlusion. There is no stenosis noted. This was interpreted by the radiologist was also independently reviewed by myself. EKG Initial EKG: Attestation: I personally reviewed and interpreted this EKG as follows: Interpretation: Sinus Rhythm (72) and Non-Specific ST Changes Comments: EKG was obtained. On my independent interpretation, it showed a normal sinus rhythm with a rate of 72. AK interval, QRS interval, and QTc intervals were all normal. [place] was borderline at -15. There are nonspecific ST-T wave changes. Management Discussion w/another healthcare provider: Hospitalist, Cartography Technician and Radiologist Treatment and Re-Evaluation Narrative: Stroke alert was called in triage. Patient was evaluated there. CT scan of the brain revealed a lacunar infarct in the left insular cortex. Patient was evaluated by stroke neurology. There is no large vessel occlusion on CTA. Therefore, patient will be admitted here for further work-up. Case was discussed with the hospitalist. She will admit the patient to her service. Patient understood and was agreeable with the plan. All questions were answered. Stroke Documentation Questions Stroke Team Activated: Yes Reviewed Inclusion/Exclusion criteria: Yes Was Patient considered for Endovascular Intervention?: No-CTA negative, determined not to be an endovascular candidate IV Thrombolytic Administered: No No contraindications from thrombolytic administration: No Critical Care Time Critical Care Time: Yes Critical care time (excluding procedures): 30-74 minutes (33), Including time spent:, Discussing w/Patient &/or Family/[employer], Discussing w/Consultants, Arranging Admission or Transfer and Performing Direct Patient Care at Bedside Discharge Plan Dx/Rx/DC Orders Clinical Impression: Acute confusion, Stroke Disposition Disposition: Acute Care [facility]
--- NOTE | 2023-05-12 14:00 | CT_ITS ---
STUDY: CTA HEAD AND NECK WITH CONTRAST REASON FOR EXAM: Female, 73 years old. Neuro deficit, acute, stroke suspected RADIATION DOSAGE (If Supplied By Facility): CTDIvol = ( 17.09 ) mGy, DLP = ( 881.11 ) mGycm TECHNIQUE: CT angiography was performed with a multi-detector CT scanner. Data acquisition was obtained from the skull base through the vertex following intravenous administration of IV 100mL [id number]-[id number]. MIP images were reconstructed from the axial data set. Post-processing of the angiographic images was performed, with multiplanar reformation and 3D reconstruction. Individualized dose optimization techniques were used for this CT. COMPARISON: No relevant priors. FINDINGS: Normal bilateral petrous carotid arteries. There is calcified plaque formation of the right cavernous carotid artery, without a cross-sectional luminal stenosis. There is calcified plaque formation of the left cavernous carotid artery, without a cross-sectional luminal stenosis. Normal right A1 segments of the anterior cerebral artery. Normal left A1 segments of the anterior cerebral artery. Normal intact anterior communicating artery (ACOM). Normal bilateral A2 segments of the anterior cerebral arteries. Normal right M1 and M2 segments of the middle cerebral arteries, with a normal M1 bifurcation. Normal left M1 and M2 segments of the middle cerebral arteries, with a normal M1 bifurcation. 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 Normal left posterior communicating artery (PCOM). Normal bilateral vertebral arteries. Normal basilar artery with a normal basilar bifurcation. The visualized bilateral superior cerebellar (SCA) arteries are normal. Normal bilateral P1, P2 and visualized P3 segments of the posterior cerebral arteries. There is no demonstrated aneurysm of the [place] of [place]. AORTIC ARCH: There is mild atherosclerotic calcific plaque formation of the aortic arch and great vessels arising from the aortic arch, without a hemodynamically significant stenosis. There is a normal origin of the brachiocephalic, left common carotid, and left subclavian arteries. RIGHT CAROTID ARTERIES: Normal right common carotid artery (CCA). Normal right common carotid bulb. Normal origin of the right internal carotid (ICA) artery without a hemodynamically significant stenosis. Normal visualized cervical portion of the right internal carotid artery. Normal origin of the right external carotid artery (ECA). LEFT CAROTID ARTERIES: Normal left common carotid artery (CCA). Normal left common carotid bulb. Normal origin of the left internal carotid (ICA) artery without a hemodynamically significant stenosis. Normal visualized cervical portion of the left internal carotid artery. Normal origin of the left external carotid artery (ECA). VERTEBRAL ARTERIES: Normal bilateral vertebral arteries. CT/STROKE CTA Head AND Neck W/Con IMPRESSION: Normal CTA Head and neck with contrast. N.B. : The above Results were Read Back by Leo Novoa MD to Dr Brijesh DO, and understanding confirmed on 05/12/2023 14:24:35 (ET). Electronically Signed: Leo Novoa MD at 14:25 EDT ,
[2023-05-12 14:05] LABS: Absolute Lymphocyte Count 2.84 X10^3/uL (0.83-4.51); Basophil# 0.07 X10^3/uL; Basophil% 0.8 % (0-1); Eosinophil# 0.25 X10^3/uL; Eosinophils% 2.8 % (0-5); Hematocrit 44.6 % (37-47); Hemoglobin 14.6 g/dL (12.0-15.0); Lymphocyte # 2.84 X10^3/ul (0.83-4.51); Lymphocyte % 31.9 % (19-41); Mean Corp Hgb Conc 32.7 g/dL (32-36); Mean Corpuscular Hgb 30.2 pg (27.0-32.0); Mean Corpuscular Volume 92.1 fL (81-99); Mean Platelet Vol. 9.2 fl (6.2-12.0); Monocyte% 7.9 % (0-10); NRBC Flagged by Analyzer 0 % (0-5); Neutrophil # 5.02 X10^3/uL (2.7-7.7); Neutrophil % 56.4 % (47-70); Platelet Count 245 K/mm3 (150-450); RBC Distribution Width CV 12.7 % (11.6-14.6); RBC Distribution Width SD 42.9 fl (35.1-43.9); Red Blood Count 4.84 M/mm3 (4.2-5.4); White Blood Count 8.9 K/mm3 (4.4-11.0)
[2023-05-12 14:19] LABS: Partial Thromboplast Time 26.8 Seconds (24.1-36.2)
[2023-05-12 14:23] LABS: Anion Gap 5 (5-15); BUN 12 mg/dL (7-18); BUN/Creat Ratio 16.2 RATIO (10-20); Chloride 110 mmol/L (98-107); Creatinine, Serum 0.74 mg/dL (0.55-1.02); EST Glomerular Filtration Rate 82 mL/min (>60); Est Glom Filt Rate - Afr Amer 99 mL/min (>60); Estimated Creatinine Clearance 37.81 ml/min; Glucose 106 mg/dL (74-106); Potassium 3.8 mmol/L (3.5-5.1); Sodium Level 140 mmol/L (136-145); Troponin-I HS 8 pg/mL (3.0-54.0)
--- NOTE | 2023-05-12 14:30 | RAD_ITS ---
STUDY: X-RAY CHEST REASON FOR EXAM: Female, 73 years old. Neuro deficit, acute, stroke suspected TECHNIQUE: Single AP portable view of the chest. COMPARISON: None. FINDINGS: EKG electrodes are seen. The lungs are clear and expanded. There is no demonstrated pleural abnormality. Normal size heart. Normal mediastinum and aubree. Normal visualized pulmonary arteries. Normal visualized aortic arch and descending thoracic aorta. There are degenerative changes of the visualized thoracic spine. Prior rotator cuff surgery involving the left shoulder. There is no demonstrated abnormality of the visualized soft tissue structures of the upper abdomen. RAD/Chest 1 View IMPRESSION: No acute abnormality is seen. Electronically Signed: Leo Novoa MD at 14:45 EDT ,
--- NOTE | 2023-05-12 15:29 | CHAPLAIN ---
Type of Pastoral Visit ___ Initial Visit ___ Follow-up Visit ___ On-call Visit ___ General Patient Visit ___ Spiritual Assessment ___ Family Conference ___ Bereavement _x__ Rapid Response ___ Code Blue ___ Other (describe below) Pastoral Care Referral From ___ Patient ___ Family ___ Nurse ___ Physician ___ Registered Nurse Surgical Services ___ Mixer Foam Rubber _x__ Other (describe below) Sacrament/Intervention _x__ Active listening ___ Anointing ___ Druze ___ Bereavement ___ Communion ___ Fior exploration ___ ___ Life review ___ Prayer ___ Reconciliation ___ Sacrament of Sick _x__ Supportive presence ___ Wedding ___ Other (describe below) Pastoral Comments met four sisters, two in waiting area and two in ED room, as patient is being evaluated for a stroke; sisters all state concern as she is so healthy, this is a surprise; offer of presence and care to family; no one identifies any needs; offer of future support given as desired
--- NOTE | 2023-05-12 15:33 | ECHOD_ITS ---
Reason For Study: TIA/STROKE Procedure This was a 2D Doppler, Color Flow transthoracic echocardiogram. Exam performed portable in ICU/CCU. Left Ventricle Normal LV size. Mild concentric left ventricular hypertrophy. The left ventricular ejection fraction is 65 %. Stage 1 diastolic dysfunction. Right Ventricle Normal right ventricle. Atria The left and right atria are normal. Bubble contrast study is negative for PFO/ASD. Mitral Valve Trivial mitral valve insufficiency. Tricuspid Valve Trivial tricuspid valve insufficiency. Normal pulmonary artery pressure. Aortic Valve Trisinus/trileaflet aortic valve. Pulmonic Valve The pulmonic valve is not well visualized. Trivial pulmonic valve insufficiency. Great Vessels Normal sized aortic root. Pericardium/Pleural No pericardial effusion. Medication Performed a rapid injection of agitated mix of 9 cc saline and 1cc air to assess for atrial septal defect. MMode/2D Measurements & Calculations LVIDd: 3.5 cm IVSd: 1.4 cm Ao root diam: 3.5 cm LVIDs: 2.6 cm LVPWd: 1.2 cm FS: 24.2 % LAV(MOD-bp): 35.2 ml LVAd ap4: 23.5 cm2 SV(MOD-sp4): 43.4 ml LAV(MOD-bp) Indexed: 19.5 ml/m2 LVLd ap4: 7.1 cm LAV(MOD-sp2): 43.1 ml EDV(MOD-sp4): 63.7 ml LAV(MOD-sp4): 23.4 ml EDV(sp4-el): 66.0 ml LVAs ap4: 11.5 cm2 LVLs ap4: 5.5 cm ESV(MOD-sp4): 20.3 ml ESV(sp4-el): 20.3 ml EF(MOD-sp4): 68.2 % EF(sp4-el): 69.2 % SV(sp4-el): 45.6 ml LA A4 area: 11.1 cm2 LA dimension(2D): 3.8 cm RA A4 area: 11.6 cm2 TAPSE: 2.3 cm Time Measurements MV dec time: 0.29 sec Doppler Measurements & Calculations MV E max jonathan: 47.6 cm/sec Lat Peak E' Jonathan: 11.4 cm/sec Med Peak E' Jonathan: 6.6 cm/sec MV A max jonathan: 75.4 cm/sec E/E' lat: 4.2 E/E' med: 7.2 MV E/A: 0.63 MV V2 max: 76.9 cm/sec MV dec slope: 180.1 cm/sec2 Ao V2 max: 109.0 cm/sec MV max P.4 mmHg Ao max P.8 mmHg MV V2 mean: 41.1 cm/sec Ao V2 mean: 76.3 cm/sec MV mean P.77 mmHg Ao mean P.6 mmHg MV V2 VTI: 23.9 cm Ao V2 VTI: 25.3 cm AV (velocity ratio): 0.79 LV V1 max: 90.2 cm/sec LV V1 max P.3 mmHg LV V1 mean P.8 mmHg LV V1 mean: 62.8 cm/sec LV V1 VTI: 19.9 cm ECHO/Echo Complete Interpretation Summary The left ventricular ejection fraction is 65 %. Stage 1 diastolic dysfunction. Mild concentric left ventricular hypertrophy. Ordering Physician: Eleanor Combs Referring Physician: Darshan Jo Performed By: Amisha Ramirez RCS
--- NOTE | 2023-05-12 15:33 | MRI_ITS ---
STUDY: MRI BRAIN WITHOUT CONTRAST REASON FOR EXAM: Female, 73 years old. stroke, CONFUSION TECHNIQUE: Standardized multiplanar fat and water weighted pulse sequences were obtained. COMPARISON: CT the brain May 12, 2023 FINDINGS: Normal size of the ventricles and extra-axial spaces for the patient''s age. Mild periventricular white matter ischemic changes without mass effect or restricted diffusion. Normal bilateral basal ganglia. Normal thalami. There is no extra-axial fluid accumulation. Normal flow voids within the major intracranial circulation suggesting patency by spin echo criteria. Normal sella turcica, pituitary gland, infundibular stalk, optic chiasm and hypothalamus. Normal tectal plate and pineal gland. Normal midbrain, nia and medulla. Normal cerebellum. Normal basal cisterns. Normal bilateral temporal bones. Normal bilateral internal auditory canals. No demonstrated orbital abnormality, within the constraints of a routine brain study. Normal visualized paranasal sinuses. Normal calvarium and skull base. Normal visualized soft tissue structures. Normal visualized upper cervical spine. MRI/Brain without Contrast IMPRESSION: Mild periventricular white matter ischemic changes without evidence for acute infarct. Electronically Signed: Kayden Spencer MD at 18:30 EDT ,
--- NOTE | 2023-05-12 15:34 | HP.PCM.HOS_ITS ---
HPI - General General Date of Admission: 05/12/23 Date of Service: 05/12/23 Chief Complaint: Confusion HPI Narrative KE GTZ, is a 73 F who [facility] Medical History Cervical cancer Home Medications NK 10/01/21 [History Last Taken Unknown] Allergy/AdvReac Type Severity Reaction Status Date / Time cortisone Allergy swelling Verified 10/29/21 14:11 Family History Mother Cancer Father Heart disease Surgical History History of hysterectomy Social History household members: spouse housing: house Smoking Status: Never smoker alcohol intake: never substance use type: does not use Vital Signs Vital Signs Vital Signs: 05/12/23 13:52 05/12/23 13:57 05/12/23 14:07 Temperature 97.8 F Temperature Source Temporal Pulse Rate 98 83 Respiratory Rate 16 18 Blood Pressure 162/97 H 138/85 H Blood Pressure Mean 118 102 Pulse Ox 100 94 Oxygen Delivery Method Room Air Room Air Room Air 05/12/23 14:17 05/12/23 14:30 05/12/23 15:00 Temperature Temperature Source Pulse Rate 78 74 71 Respiratory Rate 12 14 18 Blood Pressure 139/71 H 149/84 H 155/82 H Blood Pressure Mean 93 105 106 Pulse Ox 94 95 94 Oxygen Delivery Method Room Air Room Air Room Air Weight Weight: 82.1 kg Body Mass Index (BMI) 34.2 Physical Exam Const alert, no apparent distress, healthy appearing and well nourished; Negative for average body habitus Constitutional Narrative: Obese, older, white female, sitting up in bed, sister is at bedside, oriented to self, place but not time, recurrently asks her sisters how she got here and with going on and has no recollection of what been happening earlier today General Appearance: cooperative HEENT normocephalic, head/scalp atraumatic and moist oral mucous membranes HEENT Narrative: Moderate hearing loss however hearing seems to be good with hearing aids in place, Mallampati 2, no thrush Eyes PERRL, EOMs intact bilaterally and conjunctivae normal Eyes Narrative: No scleral icterus Neck no lymphadenopathy, supple, no JVD and no carotid bruits Neck Narrative: Trachea midline, no thyroid enlargement Resp normal respiratory effort, no retractions, no use of accessory muscles and clear to auscultation bilaterally Auscultation: Negative for rales, rhonchi or wheezes Cardio regular rate, regular rhythm, S1 normal heart sound, S2 normal heart sound, no murmurs, no rub, no gallops and no clicks GI normal to inspection, nondistended, normoactive bowel sounds, soft to palpation, non-tender and non-distended Extremity no clubbing, cyanosis or edema Extremity Narrative: Pedal pulses are 2+ Skin no rashes or lesions noted, no wounds, skin turgor normal, no jaundice, no petechiae and no mottling Neuro CN's II-XII intact bilaterally, moves all extremities and no focal motor defic its Neuro Narrative: No sensory deficits Sensorium / Orientation: awake, alert, oriented to person and oriented to place; Negative for oriented to time Speech: speech normal Motor Exam: strength 5/5 throughout Psych affect normal Psych Narrative: Mildly anxious but eye contact is good Mood & Affect: anxious Results Lab / Micro Data 05/12/23 13:54 05/12/23 13:54 Labs: Laboratory Results - last 24 hr 05/12/23 13:54: WBC 8.9, RBC 4.84, Hgb 14.6, Hct 44.6, MCV 92.1, MCH 30.2, MCHC 32.7, RDW Std Deviation 42.9, RDW Coeff of Kimberly 12.7, Plt Count 245, MPV 9.2, Immature Gran % (Auto) 0.200, Neut % (Auto) 56.4, Lymph % (Auto) 31.9, [place] % (Auto) 7.9, Eos % (Auto) 2.8, Baso % (Auto) 0.8, Absolute Neuts (auto) 5.0, Absolute Lymphs (auto) 2.84, Nucleated RBC % 0, PT 13.0, INR 1.0, APTT 26.8, Sodium 140, Potassium 3.8, Chloride 110 H, Carbon Dioxide 25.0, Anion Gap 5, BUN 12, Creatinine 0.74, Estim Creat Clear Calc 37.81, Est GFR (MDRD) Af Amer 99, Est GFR (MDRD) Non-Af 82, BUN/Creatinine Ratio 16.2, Glucose 106, Calcium 9.0, Troponin I High Sens [address] 05/12/23 13:57 IMPRESSION: Findings suggestive of the focal ischemic insult in the insular cortex of the left temporal lobe. N.B. : The above Results were Read Back by Leo Novoa MD to Dr Brijesh DO, and understanding confirmed on 05/12/2023 14:10:14 (ET). Electronically Signed: Leo Noova MD at 14:11 EDT , ADDENDUM: 05/12/23 1418 IMPRESSION: Findings suggestive of the focal ischemic insult in the insular cortex of the left temporal lobe. N.B. : The above Results were Read Back by Leo Novoa MD to Dr Brijesh DO, and understanding confirmed on 05/12/2023 14:10:14 (ET). Electronically Signed: Leo Novoa MD at 14:11 EDT , Head/Neck CTA 05/12/23 14:00 IMPRESSION: Normal CTA Head and neck with contrast. N.B. : The above Results were Read Back by Leo Novoa MD to Dr Brijesh DO, and understanding confirmed on 05/12/2023 14:24:35 (ET). Electronically Signed: Leo Novoa MD at 14:25 EDT , ADDENDUM: 05/12/23 1432 IMPRESSION: Normal CTA Head and neck with contrast. N.B. : The above Results were Read Back by Leo Novoa MD to Dr Coley, DO, and understanding confirmed on 05/12/2023 14:24:35 (ET). Electronically Signed: Leo Novoa MD at 14:25 EDT , Chest X-Ray 05/12/23 14:30 IMPRESSION: No acute abnormality is seen. Electronically Signed: Leo Novoa MD at 14:45 EDT , Assessment & Plan Assessment/Plan (1) Acute confusion: (2) Stroke: PLAN: Plan Acute stroke with confusion -CT of the brain shows findings suggestive of focal ischemia in the insular cortex of the left temporal lobe -CTA is unremarkable -EKG is unremarkable -Give 325 mg p.o. aspirin x1 dose -Aspirin 81 mg daily -Allow for permissive hypertension for 24 to 48 hours with ultimate blood pressure goal being less than 130/80 -Start atorvastatin 80 mg -Check lipid profile -Blood sugars are normal so we will defer a hemoglobin A1c at this time -MRI -Check echocardiogram -NIH is 1 for confusion -Patient was out of the window for tenecteplase to be given -PT/OT/speech (for confusion) consultation -Bedside swallow eval and start cardiac diet if passes DVT prophylaxis -Lovenox subcu daily CODE STATUS -Full code Charges/Coding Visit Charges Inpatient E&M: 54843 Init Hosp L2
--- NOTE | 2023-05-12 15:47 | NURSING ---
PCU [facility]FUSION, STROKE
[2023-05-12] MEDS: Aspirin 325 MG Tablet PO (16:03)
[2023-05-12 19:28] LABS: Bedside Glucose 101 mg/dL (74-106)
[2023-05-12] MEDS: Atorvastatin Calcium 80 MG Tablet PO (20:13)
[2023-05-13 02:00] VITALS: BP 137/72; PULSE 63; RESP 14; TEMP 36.4; O2SAT 93
[2023-05-13 03:42] LABS: Absolute Neutrophil Count 2.8 X10^3/uL (2.0-7.7); Basophil# 0.06 X10^3/uL; Basophil% 0.9 % (0-1); Eosinophil# 0.34 X10^3/uL; Eosinophils% 5.2 % (0-5); Hematocrit 43.4 % (37-47); Hemoglobin 13.9 g/dL (12.0-15.0); Lymphocyte % 41.3 % (19-41); Mean Corpuscular Hgb 29.8 pg (27.0-32.0); Mean Corpuscular Volume 93.1 fL (81-99); Mean Platelet Vol. 9.3 fl (6.2-12.0); Monocyte# 0.65 X10^3/uL; NRBC Flagged by Analyzer 0 % (0-5); Neutrophil # 2.76 X10^3/uL (2.7-7.7); Neutrophil % 42.3 % (47-70); Platelet Count 226 K/mm3 (150-450); RBC Distribution Width CV 12.8 % (11.6-14.6); RBC Distribution Width SD 44.2 fl (35.1-43.9); Red Blood Count 4.66 M/mm3 (4.2-5.4); White Blood Count 6.5 K/mm3 (4.4-11.0)
[2023-05-13 04:09] LABS: AST(SGOT) 16 U/L (15-37); Alanine Aminotransfer ALT/SGPT 26 U/L (13-56); Albumin, Serum 3.3 g/dL (3.2-5.0); Alkaline Phosphatase 49 U/L (45-117); Anion Gap 5 (5-15); BUN 10 mg/dL (7-18); BUN/Creat Ratio 14.7 RATIO (10-20); Calcium,Total 8.4 mg/dL (8.5-10.1); Chloride 108 mmol/L (98-107); Cholesterol 196 mg/dL (200); Creatinine, Serum 0.68 mg/dL (0.55-1.02); EST Glomerular Filtration Rate 90 mL/min (>60); Est Glom Filt Rate - Afr Amer 109 mL/min (>60); Estimated Creatinine Clearance 37.81 ml/min; Globulin 3.3 g/dL (2.2-4.2); Glucose 103 mg/dL (74-106); High Density Lipoprotein 52 mg/dL; Magnesium 2.4 mg/dL (1.6-2.6); Phosphorus 3.6 mg/dL (2.5-4.9); Potassium 3.5 mmol/L (3.5-5.1); Protein, Total 6.6 g/dL (6.4-8.2); Sodium Level 140 mmol/L (136-145); Thyroid Stim Hormone (TSH) 1.69 uIU/mL (0.358-3.74); Triglycerides 139 mg/dL; Very Low Density Lipoprotein 28 mg/dL (5-40)
[2023-05-13 05:18] VITALS: BMI 32.8
[2023-05-13 06:00] VITALS: BP 128/76; PULSE 68; RESP 17; TEMP 36.6; O2SAT 93
[2023-05-13 07:15] VITALS: O2SAT 94
--- NOTE | 2023-05-13 10:07 | CASEMGMT ---
DARIELA MARINA Assessment: Face to Face with pt for initial transition planning/care coordination assessment. RN SALAS introduced self and role at [facility], pt voices understanding and consents to assessment. Pt is A&O x4 and answers all questions appropriately at this time. Pt sitting up in bed in no distress. Care providers, pharmacy, and demographics verified/updated. Admitting Dx: stroke alert PCP:Sandro Specialists:Denies Preferred Pharmacy:[facility] Insurance: Bria READ Prescription Benefit: yes LNOK: Deo Mclean, Living Arrangements: Pt lives with in a single story home with 2 steps to enter through the garage. Pt reports she is I in ADL's and denies concerns at home. Transportation: Pt drives self and denies concerns with transportation. DME:cane, walker- dont use; grab bar in the bathroom, pt home is w/c accessible HHC/SNF: Pt denies. Pt states no concerns with going home at time of dc. PT and OT evals pending, no ST recommended after eval. Pt states no further concerns/needs. CM to follow. Advised pt to ask CM if any further question/concerns/needs arise, voices understanding. Pt Goal: Home Plan: Home, follow PT and OT
[2023-05-13 11:00] VITALS: BP 106/81; PULSE 65; RESP 16; TEMP 36.7; O2SAT 95
[2023-05-13] MEDS: Aspirin 81 MG TAB.CHEW PO (13:44)
--- NOTE | 2023-05-13 14:07 | CHAPLAIN ---
Type of Pastoral Visit ___ Initial Visit _x__ Follow-up Visit ___ On-call Visit ___ General Patient Visit ___ Spiritual Assessment ___ Family Conference ___ Bereavement ___ Rapid Response ___ Code Blue ___ Other (describe below) Pastoral Care Referral From _x__ Patient ___ Family ___ Nurse ___ Physician ___ Boot Lace Cutter Machine ___ Talent Sourcer ___ Other (describe below) Sacrament/Intervention _x__ Active listening ___ Anointing ___ Buddhist ___ Bereavement ___ Communion _x__ Fior exploration ___ ___ Life review _x__ Prayer ___ Reconciliation ___ Sacrament of Sick _x__ Supportive presence ___ Wedding ___ Other (describe below) Pastoral Comments talked through patient's experience in ED and hospital; pt expresses her fior and desire for spiritual care support; listening, presence, and prayer given
--- NOTE | 2023-05-13 15:33 | CASEMGMT ---
SW completed a PHQ9 with patient as she had a TIA. Patient scored a 0 which indicates no depression. Patient declined any need for counseling resources. Sangeeta HERNADEZ
--- NOTE | 2023-05-13 15:46 | DCINST_ITS ---
Discharge Instructions Diet Discharge Diet: - (DASH diet) Activity Discharge Activity: Return to Normal Activity Follow Up Care Test Results: Test results from this visit will be discussed in further detail at your follow- up appointment, if applicable. Discharge Plan Admission Admit Date/Time: 05/12/23 15:27 Primary Reason for Your Visit: Confusion Attending Provider: Yessi De La Torre Primary Care Provider: Darshan Jo Consulting Providers: Eleanor Combs Instructions Patient Instructions: TIA Dc Additional Instructions / Restrictions: DISCHARGE INSTRUCTIONS PLEASE READ *Please take this with you to your next doctors appointment* -You will be discharged on aspirin and Plavix for 21 days, after which you will take only aspirin. A script will also be sent for atorvastatin -Please follow-up with neurology upon discharge, please call Dr. Chavez's office upon discharge to schedule an establish care appointment for your mini stroke ) -Please call your primary care provider's office upon discharge to schedule a hospital follow up within 1 week. -For any concerning signs or symptoms please call 911 or proceed to the nearest emergency department Discharge Orders/Prescriptions Prescriptions: New aspirin 81 mg Tablet,Chewable 81 mg PO BREAKFAST Qty: 30 0RF clopidogrel [Plavix] 75 mg tablet 75 mg PO DAILY 21 Days Qty: 21 0RF atorvastatin 40 mg tablet 40 mg PO QHS Qty: 30 0RF Referrals / Follow Up: Darshan Jo DO [Primary Care Provider] - Within 1 Week Luis Chavez MD [Non-Staff -Ordering Privileges] - Disposition Disposition (needs filled in before D/C Order can be placed): Home, Self Care
--- NOTE | 2023-05-13 15:48 | PCM.DC.SUM ---
Providers Date of Admission: 05/12/23 Date of Discharge: 05/13/23 Primary Care Physician: Dr. Darshan Jo DO Reason For Visit: STROKE ALERT Diagnosis Discharge Diagnosis (1) TIA (transient ischemic attack): Status: Acute Code(s): G45.9 - Transient cerebral ischemic attack, unspecified (2) Acute confusion: Status: Acute Code(s): R41.0 - Disorientation, unspecified Plan #TIA #Hx cervical cancer #Stage I diastolic dysfunction Medications at Discharge Home Medications aspirin 81 mg chewable tablet 81 mg PO BREAKFAST #30 tabs 05/13/23 atorvastatin 40 mg tablet 40 mg PO QHS #30 tabs 05/13/23 clopidogrel 75 mg tablet (Plavix) 75 mg PO DAILY 21 days #21 tabs 05/13/23 Hospital Course Procedures Transthoracic echo Summary of Care Provided Minutes Spent on Discharge: 31 Hospital Course: Patient is a 73-year-old female with history of cervical cancer that was brought in as a stroke alert. She had CT of the brain which was suggestive of focal ischemia of the insular cortex of the left temporal lobe, CT unremarkable, TeleMed recommended admission and MRI/further work-up. MRI was actually negative for stroke and symptoms completely resolved after several hours. Echocardiogram on revealing. Based on symptoms suspect patient had TIA. Will DC on DAPT for 21 days followed by single antiplatelet agent and give follow-up information for neurology. Patient reported complete resolution of symptoms on discharge. Discharge instructions as follows: -You will be discharged on aspirin and Plavix for 21 days, after which you will take only aspirin. A script will also be sent for atorvastatin -Please follow-up with neurology upon discharge, please call Dr. Chavez's office upon discharge to schedule an establish care appointment for your mini stroke (ph [phone]) -Please call your primary care provider's office upon discharge to schedule a hospital follow up within 1 week. -For any concerning signs or symptoms please call 911 or proceed to the nearest emergency department Physical Exam Narrative General: Alert, oriented, no apparent distress HEENT: Atraumatic, normocephalic Eyes: Anicteric, normal conjunctiva, extraocular movements grossly intact Neck: Supple Respiratory: Clear to auscultation bilaterally, normal respiratory effort Cardiovascular: Regular rate and rhythm GI: Soft, nontender, nondistended Extremities: No edema Musculoskeletal: Moving all extremities Neuro: No overt focal neurological deficits Skin: No rashes appreciated Psych: Cooperative Weight / BMI Weight Weight: 78.8 kg Body Mass Index (BMI) 32.8 ABG / Lab / Microbiology Data 05/13/23 03:30 05/13/23 03:30 Laboratory: Laboratory Results - last 24 hr 05/12/23 14:10: POC Glucose 101 05/13/23 03:30: WBC 6.5, RBC 4.66, Hgb 13.9, Hct 43.4, MCV 93.1, MCH 29.8, MCHC 32.0, RDW Std Deviation 44.2 H, RDW Coeff of Kimberly 12.8, Plt Count 226, MPV 9.3, Immature Gran % (Auto) 0.300, Neut % (Auto) 42.3 L, Lymph % (Auto) 41.3 H, [place] % (Auto) 10.0, Eos % (Auto) 5.2 H, Baso % (Auto) 0.9, Absolute Neuts (auto) 2.8, Absolute Lymphs (auto) 2.70, Nucleated RBC % 0, Sodium 140, Potassium 3.5, Chloride 108 H, Carbon Dioxide 27.0, Anion Gap 5, BUN 10, Creatinine 0.68, Estim Creat Clear Calc 37.81, Est GFR (MDRD) Af Amer 109, Est GFR (MDRD) Non-Af 90, BUN/Creatinine Ratio 14.7, Glucose 103, Calcium 8.4 L, Phosphorus 3.6, Magnesium 2.4, Total Bilirubin 0.50, AST 16, ALT 26, Alkaline Phosphatase 49, Total Protein 6.6, Albumin 3.3, Globulin 3.3, Albumin/Globulin Ratio 1.0, Triglycerides 139, Cholesterol 196, LDL Cholesterol 116, VLDL Cholesterol 28, HDL Cholesterol 52, TSH 1.69 Radiography Diagnostic Testing: Radiology Impression Brain MRI 05/12/23 15:33 IMPRESSION: Mild periventricular white matter ischemic changes without evidence for acute infarct. Electronically Signed: Kayden Spencer MD at 18:30 EDT , Echocardiogram 05/12/23 15:33 Interpretation Summary The left ventricular ejection fraction is 65 %. Stage 1 diastolic dysfunction. Mild concentric left ventricular hypertrophy. Ordering Physician: Eleanor Combs Referring Physician: Darshan Jo Performed By: Amisha Ramirez RCS D/C Instructions Discharge Diet: - (DASH diet) Meaningful Use Info Meaningful Use Diagnoses (Choose all that apply): None applicable Discharge Plan Admission Admit Date/Time: 05/12/23 15:27 Primary Reason for Your Visit: Confusion Attending Provider: Yessi De La Torre Primary Care Provider: Darshan Jo Consulting Providers: Eleanor Combs Instructions Patient Instructions: TIA Dc Additional Instructions / Restrictions: DISCHARGE INSTRUCTIONS PLEASE READ *Please take this with you to your next doctors appointment* -You will be discharged on aspirin and Plavix for 21 days, after which you will take only aspirin. A script will also be sent for atorvastatin -Please follow-up with neurology upon discharge, please call Dr. Chavez's office upon discharge to schedule an establish care appointment for your mini stroke (ph [phone]) -Please call your primary care provider's office upon discharge to schedule a hospital follow up within 1 week. -For any concerning signs or symptoms please call 911 or proceed to the nearest emergency department Discharge Orders/Prescriptions Prescriptions: New aspirin 81 mg Tablet,Chewable 81 mg PO BREAKFAST Qty: 30 0RF clopidogrel [Plavix] 75 mg tablet 75 mg PO DAILY 21 Days Qty: 21 0RF atorvastatin 40 mg tablet 40 mg PO QHS Qty: 30 0RF Referrals / Follow Up: Darshan Jo DO [Primary Care Provider] - Within 1 Week Luis Chavez MD [Non-Staff -Ordering Privileges] - Disposition Disposition (needs filled in before D/C Order can be placed): Home, Self Care Charges/Coding Visit Charges Inpatient E&M: 58789 Disch Hosp >30min
--- NOTE | 2023-05-13 16:00 | CASEMGMT ---
No PT or OT services recommended. Pt to dc on plavix.
[2023-05-13 16:06] VITALS: BP 116/63; PULSE 68; RESP 20; TEMP 36.2; O2SAT 93
== END 2023-05-13 16:32 | disposition home or self-care (01) | DRG 69 ==
LOC: ED 15:50 → ICU 05-13 06:42
PROVIDERS: Admitting Provider Internal Medicine; Emergency Provider Emergency Medicine; PCP Family Medicine; Visit Provider Internal Medicine
DX: G45.9 Transient cerebral ischemic attack, unspecified (principal); R41.0 Disorientation, unspecified; Z85.41 Personal history of malignant neoplasm of cervix uteri; Z79.82 Long term (current) use of aspirin; Z90.710 Acquired absence of both cervix and uterus
CPT/HCPCS: 70450; 70496; 70498; 70551; 71045; 80048; 80053; 80061; 82962; 83735; 84100; 84443; 84484; 85025; 85610; 85730; 92610; 93005; 93306; 97162; 97166; 99285; Q9957; Q9967

== ENCOUNTER → 2023-10-20 | Outpatient (CLI) | payer MEDICARE, OTHER, SELFPAY ==
[2023-10-20 12:50] LABS: AST(SGOT) 20 U/L (15-37); Alanine Aminotransfer ALT/SGPT 23 U/L (13-56); Albumin, Serum 3.6 g/dL (3.2-5.0); Alkaline Phosphatase 53 U/L (45-117); Bilirubin, Direct 0.09 mg/dL (0.00-0.30); Cholesterol 221 mg/dL (200); Globulin 3.2 g/dL (2.2-4.2); High Density Lipoprotein 50 mg/dL; Protein, Total 6.8 g/dL (6.4-8.2); Triglycerides 170 mg/dL; Very Low Density Lipoprotein 34 mg/dL (5-40)
== END | disposition home or self-care (01) ==
LOC: BFHLAB 08:51
PROVIDERS: PCP Family Medicine; Visit Provider Family Medicine
DX: E78.5 Hyperlipidemia, unspecified (principal)
CPT/HCPCS: 36415; 80061; 80076

== ENCOUNTER → 2024-01-11 | Outpatient (CLI) | payer MEDICARE, OTHER, SELFPAY ==
--- NOTE | 2024-01-11 07:34 | BI_ITS ---
MAMMOGRAPHY - BILATERAL SCREENING REASON FOR EXAM: Female, 73 years old. Routine annual screening examination. PERTINENT HISTORY: Aunt with breast cancer. TECHNIQUE: Digital bilateral breast dave (3D mammographic acquisition) in the CC and MLO projections. 2-D mediolateral oblique (MLO) and craniocaudad (CC) views of both breasts were obtained. CAD: Full Field Digital Mammography with Computer Added Detection was performed. COMPARISON: Comparison is made with prior study dated 09/06/2022 and December 24, 2021. FINDINGS: Breast Composition: The breasts are almost entirely fatty. There are no dominant masses or suspicious calcifications. Stable small benign-appearing bilateral axillary lymph nodes. No other significant abnormalities are identified. There has been no significant change since the prior study. BI/SCREENING MAMM (CAD), BILAT IMPRESSION: Stable bilateral screening mammogram. Yearly follow-up mammogram recommended. (A) ASSESSMENT CATEGORY: BIRADS Category 2: Benign. A letter regarding these results will be sent to the patient by the facility within 30 days. Approximately 10% of breast cancers are not detected by mammography. A normal mammogram should not delay biopsy of a clinically suspicious abnormality. [id number] Electronically Signed: Leo Novoa MD at 8:42 EDT ,
== END | disposition home or self-care (01) ==
PROVIDERS: PCP Family Medicine; Referring Provider Family Medicine; Visit Provider Family Medicine
DX: Z12.31 Encounter for screening mammogram for malignant neoplasm of breast (principal)
CPT/HCPCS: 77067

== ENCOUNTER → 2024-05-09 | Outpatient (CLI) | payer MEDICARE, OTHER, SELFPAY ==
--- OUTSIDE RECORDS SUMMARY | 2024-05-09 09:59 | XMS RPT_ITS | CCD ---
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 [facility] Results Test Name Value Interpretation Reference Range Facil ity .Auto Diffon 08-21-2019 Ammonia (P) [Mass/Vol] 0.50 10 3/mcL Normal 0.15-1.00 [facility] ([place]) Comment on above: Performed By: #### C MIO HYDE ANEU #### [place] [address] #### GFR, LIPID, CMP, VIDH #### [address] [address] Basophils (Bld) [#/Vol] 0.10 10 3/mcL Normal 0.00-0.19 [facility] ([place]) Comment on above: Performed By: #### MIO VALERO, ANEU #### [place] [address] #### GFR, LIPID, CMP, VIDH #### [address] [address] Basophils/100 WBC (Bld) 1.2 % Normal 0.0-2.5 [facility] ([place]) Comment on above: Performed By: #### C MIO HYDE, ANEU #### [place] [address] #### GFR, LIPID, CMP, VIDH #### [address] [address] Eosinophils (Bld) [#/Vol] 0.20 10 3/mcL Normal 0.00-0.40 [facility] ([place]) Comment on above: Performed By: #### MIO VALERO, ANEU #### [place] [address] #### GFR, LIPID, CMP, VIDH #### [address] [address] Eosinophils/100 WBC (Bld) 4.0 % Normal 0.0-7.0 [facility] ([place]) Comment on above: Performed By: #### C BC, ADIFF, ANEU #### [address] [address] #### GFR, LIPID, CMP, VIDH #### [address] [address] Lymphocytes (Bld) [#/Vol] 2.20 10 3/mcL Normal 0.77-3.85 [facility] ([place]) Comment on above: Performed By: #### C BC, ADIFF, ANEU #### [place] [address] #### GFR, LIPID, CMP, VIDH #### [address] [address] Lymphocytes/100 WBC (Bld) 36.8 % Normal 10.0-50.0 [facility] ([place]) Comment on above: Performed By: #### C BC, ADIFF, ANEU #### [place] [address] #### GFR, LIPID, CMP, VIDH #### [address] [address] Monocytes/100 WBC (Bld) 8.4 % Normal 1.7-13.0 [facility] ([place]) Comment on above: Performed By: #### C BC, ADIFF, ANEU #### [place] [address] #### GFR, LIPID, CMP, VIDH #### [address] [address] Neutrophils/100 WBC (Bld) 49.6 % Normal 37.0-80.0 [facility] ([place]) Comment on above: Performed By: #### C BC, ADIFF, ANEU #### [place] [address] #### GFR, LIPID, CMP, VIDH #### [address] [address] .GFRon 08-21-2019 GFR 80 ml/min/1.73sqm Normal [facility] ([place]) Comment on above: Result Comment: GFR Population mean for , Non- Americans Ages 20-29 = 116 mL/min/1.73 sq.m. Ages 30-39 = 107 mL/min/1.73 sq.m. Ages 40-49 = 99 mL/min/1.73 sq.m. Ages 50-59 = 93 mL/min/1.73 sq.m. Ages 60-69 = 85 mL/min/1.73 sq.m. Ages 70+ = 75 mL/min/1.73 sq.m. Chronic Kidney Disease: Less than 60 mL/min/1.73 square meters End Stage Renal Disease: Less than 15 mL/min/1.73 square meters Performed By: #### C BCMIO, ANEU #### [address] [address] #### GFR, LIPID, CMP, VIDH #### [address] [address] GFR Non- 66 ml/min/1.73sqm Normal [facility] ([place]) Comment on above: Result Comment: GFR Population mean for , Non- Americans Ages 20-29 = 116 mL/min/1.73 sq.m. Ages 30-39 = 107 mL/min/1.73 sq.m. Ages 40-49 = 99 mL/min/1.73 sq.m. Ages 50-59 = 93 mL/min/1.73 sq.m. Ages 60-69 = 85 mL/min/1.73 sq.m. Ages 70+ = 75 mL/min/1.73 sq.m. Chronic Kidney Disease: Less than 60 mL/min/1.73 square meters End Stage Renal Disease: Less than 15 mL/min/1.73 square meters Performed By: #### C BC, ADIFF, ANEU #### [address] [address] #### GFR, LIPID, CMP, VIDH #### [address] [address] .NEUABSon 08-21-2019 Neutrophils (Bld) [#/Vol] 3.00 10 3/mcL Normal 2.85-6.16 [facility] ([place]) Comment on above: Performed By: #### C MIO HYDE, ANEU #### [place] [address] #### GFR, LIPID, CMP, VIDH #### [place] [address] CBCon 08-21-2019 Erythrocyte distribution width (RBC) [Ratio] 13.5 % Normal 11.5-14.5 [facility] ([place]) Comment on above: Performed By: #### C MIO HYDE, ANEU #### [place] [address] #### GFR, LIPID, CMP, VIDH #### [place] [address] Hematocrit (Bld) [Volume fraction] 45.1 % Normal 37.0-47.0 [facility] ([place]) Comment on above: Performed By: #### C MIO HYDE, ANEU #### [place] [address] #### GFR, LIPID, CMP, VIDH #### [place] [address] Hemoglobin (Bld) [Mass/Vol] 15.0 G/dL Normal 12.0-16.0 [facility] ([place]) Comment on above: Performed By: #### C MIO HYDE, ANEU #### [place] [address] #### GFR, LIPID, CMP, VIDH #### [place] [address] MCH (RBC) [Entitic mass] 30.6 pg Normal 27.0-31.2 [facility] ([place]) Comment on above: Performed By: #### C MIO HYDE, ANEU #### [place] [address] #### GFR, LIPID, CMP, VIDH #### [address] [address] MCHC (RBC) [Mass/Vol] 33.3 G/dL Normal 33.0-37.0 [facility] ([place]) Comment on above: Performed By: #### C BC, ADIFF, ANEU #### [place] [address] #### GFR, LIPID, CMP, VIDH #### [address] [address] MCV (RBC) [Entitic vol] 91.9 fL Normal 80.0-94.0 [facility] ([place]) Comment on above: Performed By: #### C BC, ADIFF, ANEU #### [place] [address] #### GFR, LIPID, CMP, VIDH #### [place] [address] Platelet mean volume (Bld) [Entitic vol] 7.4 fL Normal 7.4-10.4 [facility] ([place]) Comment on above: Performed By: #### C BC, ADIFF, ANEU #### [place] [address] #### GFR, LIPID, CMP, VIDH #### [address] [address] Platelets (Bld) [#/Vol] 262 10 3/mcL Normal 130-400 [facility] ([place]) Comment on above: Performed By: #### C BC, ADIFF, ANEU #### [place] [address] #### GFR, LIPID, CMP, VIDH #### [place] [id number] RBC (Bld) [#/Vol] 4.91 10 6/mcL Normal 4.20-5.40 [facility] ([place]) Comment on above: Performed By: #### C BC, ADIFF, ANEU #### [place] [address] #### GFR, LIPID, CMP, VIDH #### [address] [address] WBC (Bld) [#/Vol] 6.10 10 3/mcL Normal 4.60-10.80 [facility] ([place]) Comment on above: Performed By: #### C BC, ADIFF, ANEU #### [place] [address] #### GFR, LIPID, CMP, VIDH #### [address] [address] CMPon 08-21-2019 ALP [Catalytic activity/Vol] 50 U/L Normal 40-135 [facility] ([place]) Comment on above: Performed By: #### C BC, ADIFF, ANEU #### [place] [address] #### GFR, LIPID, CMP, VIDH #### [place] [address] ALT [Catalytic activity/Vol] 28 U/L Normal 10-35 [facility] ([place]) Comment on above: Performed By: #### C BC, ADIFF, ANEU #### [place] [address] #### GFR, LIPID, CMP, VIDH #### [address] [address] AST [Catalytic activity/Vol] 20 U/L Normal 10-40 [facility] ([place]) Comment on above: Performed By: #### C BC, ADIFF, ANEU #### [place] [address] #### GFR, LIPID, CMP, VIDH #### [address] [address] Bili Total 0.4 mg/dL Normal 0.2-1.0 [facility] ([place]) Comment on above: Performed By: #### C BC, ADIFF, ANEU #### [place] [address] #### GFR, LIPID, CMP, VIDH #### [address] [address] Albumin [Mass/Vol] 4.0 G/dL Normal 3.4-4.8 [facility] ([place]) Comment on above: Performed By: #### C BC, ADIFF, ANEU #### [address] [address] #### GFR, LIPID, CMP, VIDH #### [address] [address] Albumin/Globulin [Mass ratio] 1.2 {ratio} Normal 1.1-2.5 [facility] ([place]) Comment on above: Performed By: #### C BC, ADIFF, ANEU #### [address] [address] #### GFR, LIPID, CMP, VIDH #### [address] [address] Calcium [Mass/Vol] 9.4 mg/dL Normal 8.4-10.2 [facility] ([place]) Comment on above: Performed By: #### C BC, ADIFF, ANEU #### [address] [address] #### GFR, LIPID, CMP, VIDH #### [address] [address] Chloride [Moles/Vol] 105 mmol/L Normal 98-107 [facility] ([place]) Comment on above: Performed By: #### C BC, ADIFF, ANEU #### [address] [address] #### GFR, LIPID, CMP, VIDH #### [address] [address] CO2 [Moles/Vol] 30 mmol/L Normal 23-31 [facility] ([place]) Comment on above: Performed By: #### C BC, ADIFF, ANEU #### [address] [address] #### GFR, LIPID, CMP, VIDH #### [address] [address] Creatinine [Mass/Vol] 0.85 mg/dL Normal 0.55-1.02 [facility] ([place]) Comment on above: Performed By: #### C BCKAROLINEIFF, ANEU #### [address] [address] #### GFR, LIPID, CMP, VIDH #### [address] [address] Electrolyte Balance 7.0 mEq/L Normal [facility] ([place]) Comment on above: Performed By: #### C BC, ADIFF, ANEU #### [address] [address] #### GFR, LIPID, CMP, VIDH #### [address] [address] Globulin (S) [Mass/Vol] 3.4 G/dL Normal [facility] ([place]) Comment on above: Performed By: #### KAROLINE VALEROIFF, ANEU #### [address] [address] #### GFR, LIPID, CMP, VIDH #### [address] [address] Glucose [Mass/Vol] 99 mg/dL Normal 80-115 [facility] ([place]) Comment on above: Performed By: #### C BC, ADIFF, ANEU #### [address] [address] #### GFR, LIPID, CMP, VIDH #### [address] [address] Potassium [Moles/Vol] 4.7 mmol/L Normal 3.5-5.1 [facility] ([place]) Comment on above: Performed By: #### C BC, ADIFF, ANEU #### [address] [address] #### GFR, LIPID, CMP, VIDH #### [address] [address] Protein [Mass/Vol] 7.4 G/dL Normal 6.4-8.2 [facility] ([place]) Comment on above: Performed By: #### C BC, ADIFF, ANEU #### [address] [address] #### GFR, LIPID, CMP, VIDH #### [facility] [address] [place] [address] Sodium [Moles/Vol] 142 mmol/L Normal 136-145 [facility] ([place]) Comment on above: Performed By: #### C BC, ADIFF, ANEU #### [address] [address] #### GFR, LIPID, CMP, VIDH #### [facility] [address] [place] [address] Urea nitrogen [Mass/Vol] 13 mg/dL Normal 7-18 [facility] ([place]) Comment on above: Performed By: #### C BC, ADIFF, ANEU #### [address] [address] #### GFR, LIPID, CMP, VIDH #### [address] [address] Urea nitrogen/Creatinine [Mass ratio] 15 ratio Normal 7-27 [facility] ([place]) Comment on above: Performed By: #### C BC, ADIFF, ANEU #### [address] [address] #### GFR, LIPID, CMP, VIDH #### [address] [address] LIPIDon 08-21-2019 Cholesterol [Mass/Vol] 246 mg/dL High 0-200 [facility] ([place]) Comment on above: Result Comment: Chol esterol Reference Interval: Less than 200 Desirable 200-239 Borderline high risk 240 and above High risk Performed By: #### C BC, ADIFF, ANEU #### [address] [address] #### GFR, LIPID, CMP, VIDH #### [address] [address] Cholesterol in HDL [Mass/Vol] 61 mg/dL High 40-60 [facility] ([place]) Comment on above: Performed By: #### C BC, ADIFF, ANEU #### [address] [address] #### GFR, LIPID, CMP, VIDH #### [address] [address] Cholesterol in LDL [Mass/Vol] 157 mg/dL High 0-130 [facility] ([place]) Comment on above: Performed By: #### C BC, ADIFF, ANEU #### [address] [address] #### GFR, LIPID, CMP, VIDH #### [address] [address] Triglyceride [Mass/Vol] 141 mg/dL Normal 0-150 [facility] ([place]) Comment on above: Result Comment: Trig lyceride Reference Interval: Less than 150 Normal 150-199 Borderline high risk 200-499 High risk 500 or higher Very high risk Performed By: #### C BC, ADIFF, ANEU #### [address] [address] #### GFR, LIPID, CMP, VIDH #### [address] [address] VIDHon 08-21-2019 Vit. D 25-Hydroxy 55 ng/mL Normal [facility] ([place]) Comment on above: Result Comment: Inte rpretive Values Based on Total 25(OH)D: Severe Deficiency <20 ng/mL Mild to Moderate Deficiency 20-30 ng/mL Optimum Levels 30-100 ng/mL Toxicity Possible >100 ng/mL Performed By: #### C BC, ADIFF, ANEU #### [address] [address] #### GFR, LIPID, CMP, VIDH #### [address] [address] Summary Purpose Family History No Family History Records Found Advance Directives No Advanced Directives Records Found Additional Source Comments INFORMATION SOURCE (unrecogn ized section and content) DATE CREATED AUTHOR 08/21/2019 [facility] ([place]) FOR RECORDS PERTAINING TO PATIENTS WHO ARE OR HAVE BEEN ENROLLED IN A CHEMICAL DEPENDENCY/SUBSTANCEABUSE PROGRAM, SOME INFORMATION MAY BE OMITTED. This clinical summary was aggregated from multiple sources. Caution should be exercised in using it in the provision of clinical care. This summary normalizes information from multiple sources, and as a consequence, information in this document may materially change the coding, format and clinical context of patient data. In addition, data may be omitted in some cases. CLINICAL DECISIONS SHOULD BE BASED ON THE PRIMARY CLINICAL RECORDS. [facility]. provides no warranty or guarantee of the accuracy or completeness of information in this document.
[2024-05-09 12:27] LABS: Hematocrit 44.9 % (37-47); Hemoglobin 14.6 g/dL (12.0-15.0); Mean Corp Hgb Conc 32.5 g/dL (32-36); Mean Corpuscular Hgb 30.4 pg (27.0-32.0); Mean Corpuscular Volume 93.3 fL (81-99); Mean Platelet Vol. 9.8 fl (6.2-12.0); Platelet Count 236 K/mm3 (150-450); RBC Distribution Width CV 12.8 % (11.6-14.6); RBC Distribution Width SD 44.1 fl (35.1-43.9); Red Blood Count 4.81 M/mm3 (4.2-5.4); White Blood Count 6.2 K/mm3 (4.4-11.0)
[2024-05-09 12:32] LABS: Vitamin B12 809 pg/mL (211-911)
[2024-05-09 12:51] LABS: ALB/GLOB Ratio 1.1 RATIO (0.9-2.4); AST(SGOT) 17 U/L (15-37); Alanine Aminotransfer ALT/SGPT 24 U/L (13-56); Albumin, Serum 3.7 g/dL (3.2-5.0); Alkaline Phosphatase 50 U/L (45-117); Anion Gap 5 (5-15); BUN 10 mg/dL (7-18); BUN/Creat Ratio 12.7 RATIO (10-20); Calcium,Total 9.4 mg/dL (8.5-10.1); Chloride 108 mmol/L (98-107); Creatinine, Serum 0.79 mg/dL (0.55-1.02); EST Glomerular Filtration Rate 76 mL/min (>60); Est Glom Filt Rate - Afr Amer 92 mL/min (>60); Globulin 3.4 g/dL (2.2-4.2); Glucose 96 mg/dL (74-106); Potassium 4.2 mmol/L (3.5-5.1); Protein, Total 7.1 g/dL (6.4-8.2); Sodium Level 141 mmol/L (136-145)
[2024-05-11 13:08] LABS: Vitamin D 1,25-Dihydroxy 62.5 pg/mL (24.8-81.5)
[2024-05-13 21:07] LABS: Free Kappa Light Chains 14.3 mg/L (3.3-19.4); Free Lambda Light Chains 10.4 mg/L (5.7-26.3); Vitamin B1, Thiamine 132.8 nmol/L (66.5-200.0)
== END | disposition home or self-care (01) ==
PROVIDERS: PCP Family Medicine; Referring Provider Psychiatry & Neurology Neurology; Visit Provider Psychiatry & Neurology Neurology
DX: G45.4 Transient global amnesia (principal); G62.9 Polyneuropathy, unspecified; Z86.39 Personal history of other endocrine, nutritional and metabolic disease; E78.5 Hyperlipidemia, unspecified
CPT/HCPCS: 36415; 80053; 82607; 82652; 82746; 83883; 84425; 84443; 85027

== ENCOUNTER → 2024-06-07 | Outpatient (CLI) | payer MEDICARE, OTHER, SELFPAY ==
--- NOTE | 2024-06-07 07:40 | ART_ITS ---
Reason For Study: Absent pedal pulses Procedure A bilateral lower extremity continuous wave Doppler with analog waveform analysis and ankle brachial indexes. Left Segmental Pressures Left brachial= 135mmHg. Left posterior tibial artery = 179mmHg. Left dorsalis pedis artery = 151mmHg. Left digit = 119 mmHg. The left dorsalis pedis waveforms are triphasic. The left posterior tibial artery waveforms are triphasic. Right Segmental Pressures Right brachial= 136mmHg. Right posterior tibial artery = 166mmHg. Right dorsalis pedis artery = 142mmHg. Right digit = 120 mmHg. The right dorsalis pedis waveforms are triphasic. The right posterior tibial artery waveforms are triphasic. Indices The right ankle brachial index by the dorsalis pedis is 1.04. The right ankle brachial index by the posterior tibial artery is 1.22. The right digital-brachial index is 0.88. The left ankle brachial index by the dorsalis pedis is 1.11. The left ankle brachial index by the posterior tibial artery is 1.32. The left digital-brachial index is 0.88. VL/Ankle Brachial Index Interpretation Summary Right MANDEEP 1.22, normal. TBI and Doppler/PVR waveforms of the right ankle normal at rest. Left MANDEEP 1.32, normal. TBI and Doppler/PVR waveforms of the left ankle normal a t rest. Ordering Physician: Luis Chavez Referring Physician: Darshan Jo Performed By: Alejandra Butts RVT
== END | disposition home or self-care (01) ==
LOC: CVS 07:40
PROVIDERS: PCP Family Medicine; Referring Provider Psychiatry & Neurology Neurology; Visit Provider Psychiatry & Neurology Neurology
DX: R09.89 Other specified symptoms and signs involving the circulatory and respiratory systems (principal)
CPT/HCPCS: 93922

== ENCOUNTER → 2024-09-20 | Outpatient (CLI) | payer MEDICARE, OTHER, SELFPAY ==
--- NOTE | 2024-09-20 12:39 | NEURO ---
NCS and/or EMG Patient Report Ordering Doctor: Luis Chavez DATE OF SERVICE: 09/20/24 Alis presents with complaints of tingling in the feet. She also reports tightness in the heels. Electrodiagnostic findings: Peroneal motor nerve demonstrates normal distal latency amplitude and conduction velocity bilaterally. Tibial motor response is within normal limits bilaterally. Sensory responses are within normal limits. Normal peroneal and tibial F?waves. H?reflex within normal limits bilaterally. Needle EMG testing was performed the lower limbs. All muscles tested showed no evidence of denervation with normal motor unit action potentials Electrodiagnostic impression: This a normal electrodiagnostic study of the lower limbs. There is no electrodiagnostic evidence for peripheral polyneuropathy or lumbosacral radiculopathy. Multi Select Codes Neurology Neurology Interp Codes: 69512-73 Musc test done w/n test comp (interp) (2) and 01063-99 Nrv cndj test 9-10 studies (interp)
== END | disposition home or self-care (01) ==
LOC: PSN 06:46
PROVIDERS: PCP Family Medicine; Referring Provider Psychiatry & Neurology Neurology; Visit Provider Psychiatry & Neurology Neurology
DX: M79.671 Pain in right foot (principal); M79.672 Pain in left foot; M54.50 Low back pain, unspecified; M54.16 Radiculopathy, lumbar region; G62.9 Polyneuropathy, unspecified
CPT/HCPCS: 95886; 95911

== ENCOUNTER → 2024-10-02 | Outpatient (CLI) | payer MEDICARE, OTHER, SELFPAY ==
--- NOTE | 2024-10-02 13:35 | RAD_ITS ---
PROCEDURE: KNEE 3 VIEWS 10/02/2024 REASON FOR EXAM: PAIN TECHNIQUE: 3 views of the right knee COMPARISON: None. FINDINGS: Demineralization of the bones. Mild tricompartmental osteoarthritis. No acute fracture or joint effusion. RAD/Knee 3 Views IMPRESSION: Mild degenerative changes. Reading Location: [id number]
--- NOTE | 2024-10-02 13:35 | RAD_ITS ---
EXAM: Lumbar spine radiographs, five views CLINICAL HISTORY: PAIN COMPARISON: None available TECHNIQUE: Five views of the lumbar spine were obtained. FINDINGS: Five views of the lumbar spine were obtained. Bones are osteopenic. Included portions of the pelvis and SI joints are intact. A few pelvic phleboliths are present. There is slight leftward convex curvature of the mid lumbar spine on the AP view. No acute fracture or focal subluxation of the lumbar spine. Moderate multilevel degenerative disc and facet disease in the lumbar spine RAD/L/S Spine Min 4 Views IMPRESSION: Osteopenia. No acute bony abnormality of the lumbar spine. Moderate multilevel degenerative disc and facet disease in the lumbar spine. If there is persistent pain or clinical concern, short-term follow-up MRI evalu ation may be helpful. Reading Location: [facility]
== END | disposition home or self-care (01) ==
LOC: MTRAD 13:30
PROVIDERS: PCP Family Medicine; Referring Provider Family Medicine; Visit Provider Family Medicine
DX: M79.604 Pain in right leg (principal); M25.561 Pain in right knee
CPT/HCPCS: 72110; 73562

== ENCOUNTER → 2024-10-18 | Outpatient (CLI) | payer MEDICARE, OTHER, SELFPAY ==
--- NOTE | 2024-10-18 16:00 | MRI_ITS ---
PROCEDURE: SPINE LUMBAR (ROUTINE) 10/18/2024 REASON FOR EXAM: RADICULOPATHY, LUMBOSACRAL REGION TECHNIQUE: Multiplaner MRI of the lumbar spine performed without contrast. Multiple pulse sequences were obtained. COMPARISON: Lumbar spine radiograph 10/02/2024 and lumbar spine MRI 09/18/2021 FINDINGS: There is normal lumbar lordosis. The lumbar vertebral bodies are normal in height. No evidence of compression fracture. Mild multilevel loss of displaced most prominent at L1-L2. Alignment is normal. No listhesis. The bone marrow signal is unremarkable. There is no abnormal bone STIR signal. The included distal thoracic cord is normal in caliber and signal. The conus medullaris terminates at L1 level. There is no clumping of the nerve roots. L1/2: Circumferential disc bulge and facet degenerative changes without significant canal stenosis or neural foraminal narrowing.. L2/3: Circumferential disc bulge, ligamentum flavum hypertrophy and facet degenerative changes with mild canal stenosis. Mild bilateral neural foraminal narrowing.. L3/4: Circumferential disc bulge, ligamentum flavum vertebral hypertrophy and facet degenerative changes with mild canal stenosis. Neural foramina are patent. L4/5: Circumferential disc bulge and facet degenerative changes with flattening of the ventral thecal sac. Mild bilateral neural foraminal narrowing.. L5/S1: Disc bulge asymmetric to the left, ligamentum flavum hypertrophy and facet degenerative changes without significant canal stenosis. Left subarticular recess narrowing. Severe left and moderate right neural foraminal narrowing.. Diffuse fatty atrophy of the paraspinal musculature. Sacrum: Imaged sacrum is within normal limits. MRI/Spine Lumbar (Routine) IMPRESSION: No acute fracture or traumatic subluxation. Multilevel degenerative changes, most prominent at L3-L4 and L5-S1 with up to m ild canal stenosis and severe neural foraminal narrowing. L5-S1 left subarticular recess narrowing. Reading Location: [facility]
== END | disposition home or self-care (01) ==
LOC: MRI 15:26
PROVIDERS: PCP Family Medicine; Referring Provider Family Medicine; Visit Provider Family Medicine
DX: M54.17 Radiculopathy, lumbosacral region (principal)
CPT/HCPCS: 72148

== ENCOUNTER → 2024-12-14 | Outpatient (CLI) | payer MEDICARE, OTHER, SELFPAY ==
[2024-12-14 11:04] LABS: Cholesterol 217 mg/dL (<=200); High Density Lipoprotein 51 mg/dL; Low Density Lipoprotein Calc. 138 mg/dL; Triglycerides 140 mg/dL; Very Low Density Lipoprotein 28 mg/dL (5-40); cholesterol:hdl ratio screen 4.29
== END | disposition home or self-care (01) ==
LOC: MTLAB 08:37
PROVIDERS: PCP Family Medicine; Referring Provider Psychiatry & Neurology Neurology; Visit Provider Psychiatry & Neurology Neurology
DX: E78.5 Hyperlipidemia, unspecified (principal)
CPT/HCPCS: 36415; 80061

== ENCOUNTER → 2025-01-18 | Outpatient (CLI) | payer MEDICARE, OTHER, SELFPAY | END | disposition home or self-care (01) | LOC: OPBI 11:56 | PROVIDERS: PCP Family Medicine; Referring Provider Family Medicine; Visit Provider Family Medicine | DX: Z12.31 Encounter for screening mammogram for malignant neoplasm of breast (principal) | CPT/HCPCS: 77063; 77067 ==